=== PATIENT | male | born 1980 | race Caucasian/White ===

== ENCOUNTER 2021-12-03 20:11 | Emergency (ER) | payer BC, MEDICARE, SELFPAY ==
--- NOTE | ~2021-12-03 | XR_ITS ---
EXAMINATION: XR foot LT min 3V DATE: 12/03/2021 23:50 INDICATION: Left second toe injury. TECHNIQUE: 3 views of left foot were obtained. COMPARISON: None. FINDINGS: Bone alignment is normal. No fracture. Joint spaces are well maintained. IMPRESSION: 1. Normal left foot. Reviewed, dictated and finalized at location A. IMPRESSION: 1. Normal left foot.
--- NOTE | ~2021-12-03 | CT_ITS ---
EXAMINATION: CT brain wo con DATE: 12/03/2021 23:21 INDICATION: Head injury. TECHNIQUE: Computed tomography (CT) of the head was performed without intravenous contrast. The mA wa s adjusted according to patient size. Iterative reconstruction technique was employed. The dose-lengt h product was 605.33 mGy-cm. COMPARISON: Head CT 12/21/2009 FINDINGS: There is no intracranial hemorrhage, acute infarction, or abnormal intracranial mass lesion . The ventricles are normal in size. The orbits are normal. The paranasal sinuses are clear. The mast oid air cells are normal. IMPRESSION: 1. Normal brain. Reviewed, dictated and finalized at location A. IMPRESSION: 1. Normal brain.
--- NOTE | ~2021-12-03 | CT_ITS ---
EXAMINATION: CT cervical spine wo con DATE: 12/03/2021 23:21 INDICATION: Neck pain. Fall. TECHNIQUE: Computed tomography (CT) of the cervical spine was performed without intravenous contrast. Automated exposure control and iterative reconstruction technique were employed. The dose-length pro duct was 251.54 mGy-cm. COMPARISON: CT cervical spine 12/21/2009 FINDINGS: There is mild emphysema. C1 ring is ununited posteriorly, a normal variant. There is 11 deg juliette levoscoliosis of cervical spine. Vertebral body heights and intervertebral disc heights are norm al. The following disc levels are specifically discussed: C2-C3 through C4-C5: There is no uncovertebral joint osteoarthritis. There is no facet joint osteoart hritis. There is no neural foraminal stenosis. There is no central canal stenosis. C5-C6: There is no uncovertebral joint osteoarthritis. There is mild right facet joint osteoarthritis . There is no neural foraminal stenosis. There is no central canal stenosis. C6-C7: There is no uncovertebral joint osteoarthritis. There is no facet joint osteoarthritis. There is no neural foraminal stenosis. There is no central canal stenosis. C7-T1: There is no uncovertebral joint osteoarthritis. There is mild bilateral facet joint osteoarthr itis. There is no neural foraminal stenosis. There is no central canal stenosis. IMPRESSION: 1. No fracture. 2. Cervical levoscoliosis. 3. Mild emphysema. Reviewed, dictated and finalized at location A.
--- NOTE | ~2021-12-03 | XR_ITS ---
EXAMINATION: XR shoulder RT min 2V DATE: 12/03/2021 23:50 INDICATION: Right shoulder pain. TECHNIQUE: 4 views of right shoulder were obtained. COMPARISON: None. FINDINGS: Bone alignment is normal. No fracture. Glenohumeral joint is normal. There is mild acromioc lavicular joint osteoarthritis. IMPRESSION: 1. Mild acromioclavicular joint osteoarthritis. Reviewed, dictated and finalized at location A.
[2021-12-03 21:03] VITALS: BP 148/62; PULSE 64; RESP 18; TEMP 36.9; O2SAT 100
--- NOTE | 2021-12-03 23:08 | ED.GENADULT ---
HPI - General Adult General Chief complaint: Fall Stated complaint: Fall, +LOC, wound on foot Time Seen by Provider: 12/03/21 22:55 History of Present Illness HPI narrative: 41-year-old male presented emergency department for evaluation of injury to his left foot and to his right shoulder. Patient states that he chased his dog across the field while barefoot. Patient states he dove into a james and had possible loss of consciousness. Patient does describe a possible head injury and does have some posterior neck pain. Patient states he does have some right shoulder tenderness. Patient does have a laceration to the second toe of the left foot. Related Data Allergies Allergy/AdvReac Type Severity Reaction Status Date / Time naproxen Allergy Mild Verified 06/11/16 03:01 prednisone Allergy Unknown Verified 06/11/16 03:01 STEROIDS AdvReac Unknown STEROID Uncoded 10/13/13 14:03 RAGE Review of Systems Review of Systems: CONSTITUTIONAL: Denies fever, chills, or sweats. EYES: Denies visual changes, redness, or discharge. ENT: Denies rhinorrhea, congestion, sore throat, or otalgia. CARDIOVASCULAR: Denies chest pain, palpitations, or edema. RESPIRATORY: Denies cough or dyspnea. GASTROINTESTINAL: Denies abdominal pain, nausea, vomiting, or diarrhea. GENITOURINARY: Denies dysuria or hematuria. SKIN: See HPI MUSCULOSKELETAL: See HPI NEUROLOGIC: Denies headache, numbness, or weakness. Exam Narrative: APPEARANCE: Well appearing, no pain, no distress, well-nourished. HEAD: normocephalic, atraumatic. EYES: PERRLA/EOMI, conjunctivae clear. NOSE: Normal no drainage EARS:TMS clear with good light reflex. THROAT: Pharynx clear, no exudate. NECK: Supple. No adenopathy, no masses. RESPIRATORY: Airway patent, respirations nonlabored. Clear to auscultation bilaterally, no rales, rhonchi, wheezing. CARDIOVASCULAR: Regular rate and rhythm without murmurs rubs or gallops. ABDOMINAL: Soft, nontender, nondistended, normal bowel sounds MUSCULOSKELETAL: Some neck tenderness to palpation. Pain with movement of the right shoulder. NEURO: Alert. Cranial nerves II through XII intact. Good gait. Good coordination SKIN: Laceration to plantar aspect of second toe of left foot Course Course Emergency Course: Head CT, neck CT, right shoulder and left foot x-ray were negative for acute abnormalities. Patient's laceration on his left second toe was repaired as described in the procedure note. Patient states his tetanus is up-to-date. Vital Signs Vital signs: Vital Signs Temperature 98.4 F 12/03/21 21:03 Pulse Rate 64 12/03/21 21:03 Respiratory Rate 18 12/03/21 21:03 Blood Pressure 148/62 H 12/03/21 21:03 Pulse Oximetry 100 12/03/21 21:03 Oxygen Delivery Room Air 12/03/21 21:03 Temperature 98.4 F 12/03/21 21:03 Pulse Rate 68 12/04/21 01:26 Respiratory Rate 16 12/04/21 01:26 Blood Pressure 136/96 H 12/04/21 01:26 Pulse Oximetry 98 12/04/21 01:26 Oxygen Delivery Room Air 12/03/21 21:03 Procedures Laceration Laceration 1: Time: 01:05 Site: lower extremity (2nd toe) Side (If applicable): left Size (cm): 2 Description: linear Depth: simple, single layer Local Anesthetic: lidocaine 1% Amount of anesthesia used (mL): 2 Pre-repair: wound explored, irrigated and irrigated extensively ====== Skin Level ====== Skin layer closed with: nylon Size (cm): 4-0 Number of sutures: 2 Technique: simple, interrupted ====== Subcutaneous Layer ====== ====== Muscle Layer ====== ====== Tendon Layer ====== Medical Decision Making Vital Signs Vital Signs: Vital Signs Temperature 98.4 F 12/03/21 21:03 Pulse Rate 64 12/03/21 21:03 Respiratory Rate 18 12/03/21 21:03 Blood Pressure 148/62 H 12/03/21 21:03 Pulse Oximetry 100 12/03/21 21:03 Oxygen Delivery Room Air 12/03/21 21:03 Temperature 98.4
[2021-12-04] MEDS: LIDOCAINE HCL 1% PF 30 ML VIAL 10 ML INFILTRATE (00:50)
[2021-12-04 01:26] VITALS: BP 136/96; PULSE 68; RESP 16; O2SAT 98
== END 2021-12-04 01:37 | disposition home or self-care (01) ==
PROVIDERS: Emergency Provider Emergency Medicine; PCP Family Medicine
DX: S49.91XA Unspecified injury of right shoulder and upper arm, initial encounter (principal); S09.90XA Unspecified injury of head, initial encounter; S19.9XXA Unspecified injury of neck, initial encounter; S91.115A Laceration without foreign body of left lesser toe(s) without damage to nail, initial encounter; W18.39XA Other fall on same level, initial encounter; Y93.02 Activity, running
CPT/HCPCS: 12001; 70450; 72125; 73030; 73630; 99284

== ENCOUNTER 2023-08-20 11:56 | Emergency (ER) | payer BC, MEDICARE, SELFPAY ==
--- NOTE | ~2023-08-20 | XR_ITS ---
EXAMINATION: XR hip LT min 3V w AP pelvis DATE: 08/20/2023 13:10 INDICATION: Acute on chronic left hip pain TECHNIQUE: Anteroposterior view of the pelvis and anteroposterior, frog leg and cross-table lateral v iews of the left hip were obtained. COMPARISON: None. FINDINGS: Alignment is normal. No fracture or suspected osteonecrosis. Bilateral hip joint spaces are normal. T here appears be decreased offset with small impingement bumps at the bilateral femoral head neck junc tions which could predispose towards cam-type femoral acetabular impingement. Mild bilateral hip oste oarthritis. Moderate disc height loss at L5-S1. IMPRESSION: 1. Normal left hip joint space with no acute osseous abnormality. 2. Bilateral decreased femoral head/neck offset with associated small impingement. Which can predispo se towards cam-type femoral acetabular impingement. Reviewed, dictated and finalized at location A. IMPRESSION: 1. Normal left hip joint space with no acute osseous abnormality. 2. Bilateral decreased femoral head/neck offset with associated small impingeme nt. Which can predispose towards cam-type femoral acetabular impingement.
[2023-08-20 12:05] VITALS: BP 123/96; PULSE 73; RESP 20; TEMP 36.7; O2SAT 98
--- NOTE | 2023-08-20 12:14 | ED.BACK ---
HPI - Back Pain/Injury General Chief Complaint: Back Pain/Injury Stated Complaint: left-sided back pain Time Seen by Provider: 08/20/23 12:04 History of Present Illness HPI Narrative: Patient is a 42-year-old male with history of Bipolar disorder, degenerative lumbar disease with spinal stimulator placed 7 years ago here with lower back pain. Patient states that 45 minutes ago, just prior to arrival patient was at a gas station, feeling like his normal self. He bent over to pick[employer] a cup for soda and felt sudden onset sharp pain in his left lower back. He notes that the pain is severe, sharp, nonradiating. He did not fall to the ground, denies any trauma. Denies any midline pain. He notes that his pain is typically on the right side and is largely controlled after his spinal stimulator was placed in an unknown hospital 7 years ago. He does have gabapentin prescribed to him for breakthrough pains, he took 2 tablets of gabapentin prior to presentation which has helped minimally. Pain is worse with any movements and does get somewhat relieved when lying flat on his back. He notes that pain is exacerbated by bending forward. He believes his spinal stimulator is only program to help right-sided lower back pain. He denies bowel or bladder incontinence, denies saddle anesthesia. He denies numbness or weakness in his lower extremities, states he has had some difficulty bearing weight on the left leg due to worsening of pain. No urinary symptoms. He felt like his normal self prior to this enticing event. Related Data Allergies Allergy/AdvReac Type Severity Reaction Status Date / Time naproxen Allergy Mild Unknown Verified 08/20/23 11:58 prednisone Allergy Unknown Agitated Verified 08/20/23 11:58 STEROIDS AdvReac Unknown STEROID Uncoded 08/20/23 11:58 RAGE Review of Systems Review of Systems: All systems reviewed & are unremarkable except as noted in HPI and below Exam Narrative: GENERAL: Well-appearing, well-nourished, and in no acute distress. CHEST: Clear to auscultation. No respiratory distress. HEART: Regular rate and rhythm. Normal peripheral pulses. ABDOMEN: Soft, nontender, nondistended. EXTREMITIES: No midline thoracic or lumbar tenderness. Old scar and spinal stimulator visible on exam. Patient has left lateral paralumbar pain and tenderness over the iliac crest. Normal range of motion of bilateral hips. He is able to stand however pain significantly worse with attempting to bend forward and touch his toes. SKIN: Warm, dry, no rash. NEURO: No focal deficits. Alert and oriented x3. Course Course Emergency Course: Chart review performed. Patient here with left sided lower back pain. Triage vitals normal. One prior visit in our system for a fall and neck pain. Patient seen evaluated, nontoxic appearing. He is here with lower back pain after bending over. Low suspicion for spinal fracture given no midline pain present. Will give pain management with Toradol, Flexeril, Brunswick and re-evaluate. Will do left hip x-rays given the fact that he has a history of prior right hip obvious abnormalities requiring surgical repair. Patient agreeable to workup and plan. X-ray reviewed, moderate disc height loss at L5-S1, he has a known history of degenerative disc disease in his lower back. No osseous abnormalities seen in the left hip. He has bilateral decreased from our own head/neck offset with associated small impingement. Patient re-evaluated, visualized ambulating around the room, states that he has had significant improvement with medications here. Will prescribe him Brunswick and Flexeril. 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 He is already starting to do physical therapy exercises while in the room here that he has been taught previously. The results of pertinent diagnostic studies and exam findings were discussed. The mara
[2023-08-20] MEDS: KETOROLAC 30 MG/ML VIAL (*BKC) 15 MG IM (12:46)
[2023-08-20] MEDS: CYCLOBENZAPRINE HCL 10 MG TABLET PO (12:46)
[2023-08-20] MEDS: HYDROcodone/acetaminophen (*CRX) 5-325 MG TABLET 1 TAB PO (12:47)
[2023-08-20 14:19] VITALS: BP 112/80; PULSE 87; RESP 18; O2SAT 97
== END 2023-08-20 14:20 | disposition home or self-care (01) ==
PROVIDERS: Emergency Provider Student in an Organized Health Care Education/Training Program; PCP Family Medicine
DX: S39.012A Strain of muscle, fascia and tendon of lower back, initial encounter (principal); M51.36 Other intervertebral disc degeneration, lumbar region; Z96.82 Presence of neurostimulator; X50.9XXA Other and unspecified overexertion or strenuous movements or postures, initial encounter
CPT/HCPCS: 73502; 96372; 99283; A9270; J1885

== ENCOUNTER 2024-02-03 15:31 | Emergency (ER) | payer MEDICARE, BC, SELFPAY ==
[2024-02-03 15:33] VITALS: BP 167/101; PULSE 78; RESP 18; TEMP 36.4; O2SAT 100
--- NOTE | 2024-02-03 18:12 | PC.NURSE ---
called at 1809, no answer
== END 2024-02-03 18:10 | disposition left against medical advice (07) ==
PROVIDERS: PCP Family Medicine
DX: R03.0 Elevated blood-pressure reading, without diagnosis of hypertension (principal)
CPT/HCPCS: 99199

== ENCOUNTER 2024-02-23 08:20 | Outpatient (CLI) | payer BC, MEDICARE, SELFPAY ==
--- NOTE | ~2024-02-23 | CT_ITS ---
CT lumbar spine wo con Ordering provider: Tyler Albarado, CAR PUSHER History: 43 years Male with . Lumbar radicular pain . Comparison: None. Technique: CT lumbar spine without contrast. Automated exposure control and iterative reconstruction technique were employed. The dose-length product was 212.09 mGy-cm. FINDINGS: VERTEBRAE: Normal height and alignment. No subluxation or visible acute fracture. DISC SPACES: Well maintained. Evaluation of the neural foramina and spinal canal are limited without intrathecal contrast. T12-L1: No stenosis. L1-L2: No stenosis. L2-L3: No stenosis. L3-L4: No stenosis. L4-L5: No stenosis. L5-S1: No stenosis. Diffuse disc bulge with right posterolateral protrusion with possible nerve root compression in the right lateral recess. Clinical correlation advised. PARASPINOUS SOFT TISSUES: Normal aorta. Spinal stimulator is seen entering at the level of T12-L1. Bilateral kidney stones. IMPRESSION: No acute osseous abnormality. Diffuse disc bulge at the level of L5-S1. Bilateral kidney stones. Reviewed, dictated and finalized at location A. MOWER MECHANIC
--- NOTE | ~2024-02-23 | CT_ITS ---
EXAMINATION: CT thoracic spine wo con DATE: 02/23/2024 08:48 INDICATION: Lumbar radicular pain. TECHNIQUE: Computed tomography (CT) of the thoracic spine was performed without intravenous contrast. Automated exposure control and iterative reconstruction technique were employed. The dose-length pro duct was 268.41 mGy-cm. COMPARISON: None FINDINGS: There are 3 mm and 2 mm stones in right kidney. There are 3 stones in left kidney measuring up to 2 mm. There is mild emphysema. There is 5 degrees dextrocurvature of thoracic spine. Vertebral body heights are normal. There is mildly decreased disc height from T3-T4 through T10-T11. There is multilevel mild facet joint osteoarthritis. There is mild left neural foraminal stenosis at T2-T3. No central canal stenosis. There are epidural electrodes with tips at T7 and T8. IMPRESSION: 1. Mild thoracic spondylosis. Reviewed, dictated and finalized at location A. CARRIER
== END 2024-02-23 08:21 | disposition home or self-care (01) ==
LOC: MICIMG 08:22
PROVIDERS: PCP Family Medicine; Visit Provider Nurse Practitioner Family
DX: M47.814 Spondylosis without myelopathy or radiculopathy, thoracic region (principal); Z96.82 Presence of neurostimulator; M54.10 Radiculopathy, site unspecified
CPT/HCPCS: 72128; 72131

== ENCOUNTER 2024-03-29 13:12 | Outpatient (CLI) | payer BC, MEDICARE, SELFPAY ==
--- NOTE | ~2024-03-29 | CT_ITS ---
EXAMINATION: CT cervical spine wo con DATE: 03/29/2024 13:27 INDICATION: Cervical radicular pain. TECHNIQUE: Computed tomography (CT) of the cervical spine was performed without intravenous contrast. Automated exposure control and iterative reconstruction technique were employed. The dose-length pro duct was 166.44 mGy-cm. COMPARISON: CT cervical spine 12/03/2021 FINDINGS: There is mild emphysema. There is mild scarring at the lung apices. C1 ring is ununited pos teriorly, a normal variant. There is 11 degrees levoscoliosis of cervical spine. Vertebral body heigh ts are normal. Intervertebral disc heights are normal. The following disc levels are specifically dis cussed: C2-C3: There is no uncovertebral joint osteoarthritis. There is no facet joint osteoarthritis. There is no neural foraminal stenosis. There is no central canal stenosis. C3-C4: There is no uncovertebral joint osteoarthritis. There is no facet joint osteoarthritis. There is no neural foraminal stenosis. There is no central canal stenosis. C4-C5: There is no uncovertebral joint osteoarthritis. There is no facet joint osteoarthritis. There is no neural foraminal stenosis. There is no central canal stenosis. C5-C6: There is no uncovertebral joint osteoarthritis. There is no facet joint osteoarthritis. There is no neural foraminal stenosis. There is mild central canal stenosis. C6-C7: There is no uncovertebral joint osteoarthritis. There is no facet joint osteoarthritis. There is no neural foraminal stenosis. There is no central canal stenosis. C7-T1: There is no uncovertebral joint osteoarthritis. There is mild bilateral facet joint osteoarthr itis. There is no neural foraminal stenosis. There is no central canal stenosis. IMPRESSION: 1. Mild cervical spondylosis. 2. Cervicothoracic levoscoliosis. 3. Mild emphysema. Reviewed, dictated and finalized at location B. BLE MANAGER
== END 2024-03-29 13:13 | disposition home or self-care (01) ==
LOC: MICIMG 13:13
PROVIDERS: PCP Family Medicine; Visit Provider Nurse Practitioner Family
DX: M47.812 Spondylosis without myelopathy or radiculopathy, cervical region (principal); M47.813 Spondylosis without myelopathy or radiculopathy, cervicothoracic region; J43.9 Emphysema, unspecified
CPT/HCPCS: 72125

== ENCOUNTER 2024-04-08 11:04 | Outpatient (CLI) | payer BC, MEDICARE, SELFPAY ==
--- NOTE | 2024-04-08 | ECG_ITS ---
Test Date: 2024-04-08 11:40:46 Measurements Intervals [place] Rate: 52 P: 59 VT: 146 QRS: 82 QRSD: 92 T: 75 QT: 422 QTc: 395 Interpretive Statements SINUS BRADYCARDIA WITH SINUS ARRHYTHMIA No previous ECG available for comparison Electronically Signed On 04-08-2024 11:50:43 HOSPITAL EDUCATOR by Dashawn Marshall M.D.
--- OUTSIDE RECORDS SUMMARY | 2024-04-08 12:13 | XMS_ITS | Clinical Summary ---
Author Organization [facility] Address [address] [place] [address] Care Team Providers Care Weir Fisherman Name Role Phone Ghanshyam Perdue MD Primary Care Provider Source Comments [facility],non-owned Affiliates and Associated Physician Practices is amultiple site organization consisting of ambulatory clinics and hospital sitesin [place], [place], [place] and [place]. This disclosure is being madepursuant to the Care Everywhere program and may not contain all information available regarding this patient. Last updated 17.[facility] Allergies Active Allergy Reactions Criticality Noted Date Comments Duloxetine Other 06/11/2016 Naproxen GI Discomfort,Other High 11/17/2014 GI bleed, GI bleed GI bleed, GI bleed Medications * Be aware that medications may not be up to date on this document. Alwaysverify current medications with the patient. Medication Sig Dispensed Refills Start Date End Date Status ALPRAZolam (XANAX) 0.5 MG tablet TK ONE T PO BID 06/03/2016 Active MAGNESIUM-OXIDE 400 (241.3 MG) MG tablet TK 1 T PO QD 2 02/14/2017 Ac tive cyclobenzaprine (FLEXERIL) 10 MG tablet TK 1 T PO TID PRN 0 02/13/2017 Active Magnesium ([employer] TRIPLE MAGNESIUM COMPLEX) 400 MG Take 400 mg by mouth DAILY. 30 capsule 2 02/13/2017 Active amitriptyline (ELAVIL) 10 MG tablet TK 1 T PO HS 0 11/19/2017 A ctive OLANZapine (ZYPREXA) 10 MG tablet Take 10 mg by mouth once daily Active oxyCODONE-acetaminoph en (PERCOCET) 7.5-325 MG tabletIndications:Inf lammation of right sacroiliac joint (HCC),Lumbar degenerative disc disease,Spondylosis of cervical region without myelopathy or radiculopathy Take 1 tablet by mouth every 6 hours as needed for Pain Earliest Fill Date: 10/15/18 120 tablet 10/15/2018 Active baclofen (LIORESAL) 10 MG tablet TAKE 1/2 TO 2 TABLETS BY MOUTH EVERY NIGHT AT BEDTIME 180 tablet 01/18/2019 Active Active Problems Problem Noted Date Diagnosed Date Inflammation of right sacroiliac joint Lumbar degenerative disc disease Sacroiliitis, not elsewhere classified Family History Medical History Relation Name Comments Migraine Mother Relation Name Status Comments Mother Social History Tobacco Use Types Packs/Day Years Used Date Smoking Tobacco: Former Cigarettes Q uit: 03/27/2018 Smokeless Tobacco: Current Tobacco Cessation:Ready to Q uit: No; Counseling Given: Yes Comments:vape Alcohol Use Standard Drinks/Week Comments Yes 0 (1 standard drink = 0.6 oz pur e alcohol) occ Sex and Gender Information Value Date Recorded Sex Assigned at Not on file Gender Identity Not on file Sexual Orientation Not on file Last Filed Vital Signs Vital Sign Reading Time Taken Comments Blood Pressure 132/95 12/09/2018 1:51 PM CDT Pulse 88 12/09/2018 1:51 PM CDT Temperature 36.6 ??C (97.8 ??F) 12/09/2018 1:51 PM CD T Respiratory Rate 16 12/09/2018 1:51 PM CDT Oxygen Saturation 98% 12/09/2018 1:51 PM CDT Inhaled Oxygen Concentration - - Weight 62.4 kg (137 lb 9.6 oz) 11/17/2018 1:36 P M CDT Height 182.9 cm (6') 11/17/2018 1:36 PM CDT Body Mass Index 18.66 11/17/2018 1:36 PM CDT Plan of Treatment Health Maintenance Due Date Last Done Comments COLOGUARD (AGES 45-75) - COL ON CA SCREENING 1978 COLON MONITORING 1978 COLONOSCOPY - COLON CA SCREENING 1978 CT COLONOGRAPHY - COLON CA SCREENING 1978 Colorectal Cancer Screening 1978 FIT - COLON CA SCREENING 1978 FLEX SIG - COLON CA SCREENING 1978 LIPID TESTING 1978 MEDICARE AWV ? 12 MONTHS 1978 HIV SCREENING 1993 HEPATITIS C SCREENING 10/12/1996 DTAP/TDAP/TD VACCINES (1 - Tdap) 1997 HEPATITIS B VACCINE (1 of 3 - 19+ 3-dose series) 1997 COVID-19 VACCINE (1 - 2023-2 5 season) 2023 INFLUENZA VACCINE (#1) 2023 DEPRESSION SCREENING 03/10/2024 ZOSTER VACCINE (1 of 2) 2028 HIB VACCINE Aged Out No longer eligi ble based on patient's age to complete this topic HPV VACCINE Aged Out No longer eligi ble based on patient's age to complete this topic MENINGOCOCCAL (Group B) VACCINE Aged Out No longer eligible based on patient's age to complete this topic MENINGOCOCCAL VACCINE Aged Out No kristina christa eligible based on patient's age to complete this topic PNEUMOCOCCAL VACCINE Aged Out No long er eligible based on patient's age to complete this topic Medical Devices Implanted Type Area Honing Machine Operator Device Identifier Shelf Expiration Date Model / Serial / Lot [place] Leblanc-Lck Implanted:Qty: 2 on 05/27/2018 by David Glover MD at [facility] N/A: Back [employer] 03/24/2020 1192 / / [id number] Description:LEBLANC-LOCK Kit Nrstm 60cm Octrode Perc 8 Eltrd Ld - [id number] Implanted:Qty: 1 on 05/27/2018 by David Glover MD at [facility] N/A: Back [employer] 11/24/2019 [id number] / [id number] / Kit Nrstm 60cm Octrode Perc 8 Eltrd Ld - [id number] Implanted:Qty: 1 on 05/27/2018 by David Glover MD at [facility] N/A: Back [employer] 11/24/2019 [id number] / [id number] / [employer] Elite 5 W/Ptnt Cntrl Implanted:Qty: 1 on 05/27/2018 by David Glover MD at [facility] N/A: Back [employer] 12/26/2019 [id number] / [id number] / Care Teams Weir Fisherman Relationship Specialty Start Date End Date Ghanshyam Perdue MD PCP - General Family Medicine 04/07/17
--- OUTSIDE RECORDS SUMMARY | 2024-04-08 12:13 | XMS_ITS | Clinical Summary ---
Author Organization [facility] Address [address], [facility] [address] [place] [address] Phone Care Team Providers Care Manager Of Pmo Name Role Phone Ghanshyam Perdue MD Primary Care Provider [phone] Allergies No known active allergies Medications gabapentin (NEURONTIN) 100 MG Capsule Take 100 mg by mouth 3 times daily. 11/18/2022 Active QUEtiapine (SEROquel) 25 MG Tablet TAKE 1 TABLET BY MOUTH EVERY DAY AT BEDTIME 11/18/2022 Active hydrOXYzine (ATARAX) 25 MG Tablet TAKE 1 TABLET BY MOUTH THREE TIMES DAILY NEEDED 11/12/2022 Active ALPRAZolam (XANAX) 0.5 MG Tablet Take 0.5 mg by mouth. 04/26/2013 Active baclofen (LIORESAL) 10 MG Tablet TAKE 1/2 TO 2 TABLETS BY MOUTH EVERY NIGHT AT BEDTIME 01/18/2019 Active Active Problems No known active problems Family History Relation Name Status Comments Brother Father Alive Mother Alive Sister Social History Tobacco Use Types Packs/Day Years Used Date Smoking Tobacco: Every Day Cigarettes Smokeless Tobacco: Never Tobacco Cessation:Ready to Q uit: Not Asked; Counseling Given: Not Answered Alcohol Use Standard Drinks/Week Comments Yes 4 (1 standard drink = 0.6 oz pur e alcohol) Sex and Gender Information Value Date Recorded Sex Assigned at Not on file Legal Sex Male 2:55 PM CDT Gender Identity Not on file Sexual Orientation Not on file Last Filed Vital Signs Vital Sign Reading Time Taken Comments Blood Pressure 136/68 12/12/2022 11:05 AM CDT Pulse 78 12/12/2022 11:05 AM CDT Temperature 36.8 ??C (98.3 ??F) 12/12/2022 1 1:05 AM CDT Respiratory Rate 18 12/12/2022 11:0 5 AM CDT Oxygen Saturation 98% 12/12/2022 11: 05 AM CDT Inhaled Oxygen Concentration - - Weight 59.7 kg (131 lb 9.6 oz) 12/12/2022 11:05 AM CDT BMI incorrect due to technical error Height 185.4 cm (6' 1 ) 12/12/2022 11:0 5 AM CDT BMI incorrect due to technical error Body Mass Index 17.36 12/12/2022 11:05 AM CDT Plan of Treatment Health Maintenance Due Date Last Done Comments Hepatitis C Virus (HCV) Screening 1980 TdaP Immunization 1980 Hepatitis B Immunization (1 of 3 - 19+ 3-dose series) 1997 Pneumococcal Immunization Combined (1 of 2 - PCV) 1997 Colonoscopy 10/18/2023 Colorectal Cancer Screening 10/18/2023 Influenza Immunization (#1) 2023 12/17/2011 SARS-COV-2 Immunization ( season) 2023 05/16/2021, 04/03/2021 Respiratory Syncytial Virus (RSV) Immunization (Adult) (1 - 1-dose 75+ series) 2053 Meningococcal Immunization (ACWY) Aged Out No longer eligible b ased on patient's age to complete this topic Rotavirus Immunization Aged Out No lo nger eligible based on patient's age to complete this topic Insurance [facility] MEDICARE Care Teams Manager Of Pmo Relationship Specialty [place] [address] [place] [address] PCP - General Family Medicine 11/22/22
--- OUTSIDE RECORDS SUMMARY | 2024-04-08 12:13 | XMS_ITS | Patient Health Summary ---
Author Organization [facility] [employer] Address [address] [place] [address] Care Team Providers Care Breastfeeding Educator Name Role Phone Ghanshyam Perdue MD Primary Care Provider [phone] Note from [facility],non-owned Affiliates and Associated Physician Practices is amultiple site organization consisting of ambulatory clinics and hospital sitesin [place], [place], [place] and [place]. This disclosure is being madepursuant to the Care Everywhere program and may not contain all information available regarding this patient. Last updated 17.[facility] [employer] Allergies * Duloxetine(Other) * Naproxen(GI Discomfort,Other) -High Criticality Medications * Be aware that medications may not be up to date on this document. Alwaysverify current medications with the patient. * ALPRAZolam (XANAX) 0.5 MG tablet(Started 06/03/2016) TK ONE T PO BID * MAGNESIUM-OXIDE 400 (241.3 MG) MG tablet(Started 02/14/2017) TK 1 T PO QD 2 refills left * cyclobenzaprine (FLEXERIL) 10 MG tablet(Started 02/13/2017) TK 1 T PO TID PRN * Magnesium ([employer]S TRIPLE MAGNESIUM COMPLEX) 400 MG(Started 02/13/2017) Take 400 mg by mouth DAILY. 2 refills left * amitriptyline (ELAVIL) 10 MG tablet(Started 11/19/2017) TK 1 T PO HS * OLANZapine (ZYPREXA) 10 MG tablet Take 10 mg by mouth once daily * oxyCODONE-acetaminophen (PERCOCET) 7.5-325 MG tablet(Started 10/15/2018) Take 1 tablet by mouth every 6 hours as needed for Pain Earliest Fill Date: 10/15/18 * baclofen (LIORESAL) 10 MG tablet(Started 01/18/2019) TAKE 1/2 TO 2 TABLETS BY MOUTH EVERY NIGHT AT BEDTIME Active Problems Problem Noted Date Diagnosed Date Inflammation of right sacroiliac joint Lumbar degenerative disc disease Sacroiliitis, not elsewhere classified Social History Tobacco Use Types Packs/Day Years [...] Mass Index 18.66 11/17/2018 1:36 PM CDT Medical Devices Implanted Type Area Employee Benefits Director Device Identifier Shelf Expiration Date Model / Serial / Lot Acton Ld Leblanc-Lck Implanted:Qty: 2 on 05/27/2018 by David Glover MD at [facility] N/A: Back [employer] 03/24/2020 1192 / / [id number] Description:LEBLANC-LOCK Kit Nrstm 60cm Octrode Perc 8 Eltr[address] Ld - [id number] Implanted:Qty: 1 on 05/27/2018 by David Glover MD at [facility] N/A: Back [employer] 11/24/2019 3186 / [id number] / Kit Nrstm 60cm Octrode Perc 8 Eltr[address] Ld - [id number] Implanted:Qty: 1 on 05/27/2018 by David Glover MD at [facility] N/A: Back [employer] 11/24/2019 3186 / [id number] / Proclaim Elite 5 W/Ptnt Cntrl Implanted:Qty: 1 on 05/27/2018 by David Glover MD at [facility] N/A: Back [employer] 12/26/2019 3660 / [id number] / Procedures * PAIN MANAGEMENT PROCEDURE TIME(Performed 12/09/2018) Performed for Inflammation of right sacroiliac joint (HCC) * PAIN MANAGEMENT PROCEDURE TIME(Performed 09/15/2018) Performed for Inflammation of right sacroiliac joint (HCC) * TOXASSURE SELECT(Performed 09/07/2018) Performed for Controlled substance agreement signed * PAIN MANAGEMENT PROCEDURE TIME(Performed 08/13/2018) Performed for Inflammation of right sacroiliac joint (HCC) * XR CERVICAL SPINE 6VW OR MORE(Performed 07/17/2018) Performed for Spondylosis of cervical region without myelopathy or radiculopathy * CARDIAC RHYTHM STRIP ORDER(Performed 05/29/2018) * FL DUY SURGERY(Performed 05/27/2018) Performed for Pain * INSERTION/REPLACEMENT SPINAL CORD STIMULATOR(Performed 05/27/2018) Performed for Diagnosis unknown * XR THORACIC SPINE 2VW(Performed 01/19/2018) Performed for Neuralgia * PAIN MANAGEMENT PROCEDURE TIME(Performed 01/13/2018) Performed for Low back pain with sciatica, sciatica laterality unspecified, unspecified back pain laterality, unspecified chronicity * PAIN MANAGEMENT PROCEDURE TIME(Performed 10/22/2017) Performed for Inflammation of right sacroiliac joint (HCC) * PATHOLOGY/GENETICS HISTORICAL-ONBASE(Performed 11/22/2016) * LAB MISC TEST(Performed 10/29/2016) * ECHO COMPLETE(Performed 08/07/2016) * IMAGING/RADIOLOGY/XRAY RESULTS ORDER(Performed 06/19/2016) * IMAGING/RADIOLOGY/XRAY RESULTS ORDER(Performed 06/19/2016) Results * PAIN MANAGEMENT PROCEDURE TIME (12/09/2018 2:23 PM CDT) Only the most recent of5 resultswithin the time period is included. Anatomical Region Laterality Modality Radio Fluoroscop y Narrative 12/09/2018 11:59 PM CDT David Glover MD ? 12/22/2018 ??7:13 AM Right sacroiliac joint steroid injection under fluoroscopy and local Right Sacroiliac Steroid Injection Dx: ??M46.1 - Sacroiliitis Consent: The patient was identified in the holding area and the operative permit was explained and signed. I have discussed with the patient the risks, benefits, side effects and complications of a fluoroscopically guided sacroiliac steroid injection with catheter. I have answered the patient's questions regarding the procedure and have given the patient the opportunity to refuse the procedure. I also have discussed alternative methods of treatment. The patient stated understanding of the procedure and wished to proceed with the fluoroscopically guided sacroiliac steroid injection. Monitoring: The patient was taken to the fluoroscopic suite and placed on a C-arm table in the prone position. Noninvasive blood pressure, pulse oximetry, and an EKG tracing were used to monitor the patient continuously throughout the procedure. A nurse was in attendance for the duration of the procedure to carefully monitor the patient. Please refer to the nursing record for vital sign documentation and for any doses of sedatives and medications. I was present and gave the order for any medications given to the patient. Preparation: Chloroprep preparation was performed twice, then sterile drapes were applied to the sacrococcygeal region. Procedure: Using fluoroscopic guidance, the sacroiliac joint(s) mentioned above was visualized in the AP oblique direction. ??A 27 gauge 1.5 inch was then used to inject 1.5 cc of Lidocaine 1% for subcutaneous anesthesia. A 25 gauge 4 inch needle was placed in the inferior aspect of the sacroiliac joint. ??0.4 ml of Omnipaque (240mg/cc) was injected and intraarticular spread was confirmed under direct fluoroscopy. ??There was no evidence of intravascular or epidural spread. ??A preservative free mixture of 2 ml 0.25% Bupivacaine and dexamethasone ??10 mg is injected fredi joint and 2 ml above joint. ?? The needle was removed intact. The patient tolerated the procedure well and there were no complications. Recovery: Postprocedure instructions were given to the patient and a follow up appointment was confirmed. The patient was also discharged with information on how to reach the clinic or communications program manager physician at anytime for questions or complaints. David Glover MD DIAGNOSTIC IMAGING O RDERABLES * TOXASSURE SELECT URINE (09/07/2018 1:36 PM CDT) Summary FINAL [facility] ACCOUNT BILL Comment: TOXASSURE SELECT 13 (MW) Test ? Result ? Flag ? Units Drug Present ??Carboxy-THC ?142 ? ng/mg creat ?? Carboxy-THC is a metabolite of tetrahydrocannabinol ??(THC). ?? Source of THC is most commonly illicit, but THC is also present ?? in a scheduled prescription medication. ??Oxycodone ?2261 ?ng/mg creat ??Oxymorphone ?279 ? ng/mg creat ??Noroxycodone ? 3877 ?ng/mg creat ??Noroxymorphone ? 117 ? ng/mg creat ?? Sources of oxycodone are scheduled prescription medications. ?? Oxymorphone, noroxycodone, and noroxymorphone are expected ?? metabolites of oxycodone. Oxymorphone is also available as a ?? scheduled prescription medication. Test ?Result ?Flag ?? Units ?Ref Range ??Creatinine ?145 ?mg/dL ?>=20 Declared Medications: Medication list was not provided. For clinical consultation, please call . URINE SPECIMEN OBTAINED BY CLEAN CATCH PROCEDURE / Unknown 09/07/2018 1:36 PM CDT 09/07/2018 Narrative Resulting Agency Comment Lab Testing performed at: [facility] [address] [place] [address] D ??[facility] [id number] Racquel Khan AD SETTER-REGISTERED NURSING PROFESSOR LAB - URINE CH EMISTRY ORDERABLES [facility] ACCOUNT BILL [id number] [place] [address] * XR CERVICAL SPINE 6VW OR MORE (07/17/2018 11:19 AM CDT) Anatomical Region Laterality Modality Spine Radiographic Oriana ging 07/17/2018 12:4 2 PM CDT Impressions 07/17/2018 12:44 PM CDT Loss of the cervical lordosis with normal disc heights. Reading Radiologist: Channing Greenwood MD on 07/17/2018 at 12:44 PM Narrative 07/17/2018 12:44 PM CDT Examination: Cervical spine complete with bilateral oblique and flexion extension History: Cervical radiculopathy Findings: AP, lateral, lateral flexion and extension, open-mouth, bilateral oblique views of the cervical spine were performed without prior comparison. There is mild loss of the cervical lordosis. There is no prevertebral soft tissue swelling. Cervical spine disc spaces appear normal. There is no abnormal listhesis with flexion or extension. Osseous neural foramina appear patent on the oblique views. Alignment of C1 on C2 appears normal. Procedure Note Channing Greenwood MD - 07/17/2018 Examination: Cervical spine complete with bilateral oblique and flexion extension History: Cervical radiculopathy Findings: AP, lateral, lateral flexion and extension, open-mouth, bilateral oblique views of the cervical spine were performed without prior comparison. There is mild loss of the cervical lordosis. There is no prevertebral soft tissue swelling. Cervical spine disc spaces appear normal. There is no abnormal listhesis with flexion or extension. Osseous neural foramina appear patent on the oblique views. Alignment of C1 on C2 appears normal. IMPRESSION Loss of the cervical lordosis with normal disc heights. Reading Radiologist: Channing Greenwood MD on 07/17/2018 at 12:44 PM David Glover MD DIAGNOSTIC IMAGING O RDERABLES * CARDIAC RHYTHM STRIP ORDER (05/29/2018 9:09 PM CDT) Narrative 05/29/2018 9:09 PM CDT Ordered by an unspecified provider. Scanned Document CARDIAC SERVICES ORD ERABLES * FL DUY SURGERY (05/27/2018 8:35 AM CDT) David Glover MD FLUOROSCOPY ORDERABL ES Performing Organization Address City/State/[facility] Co de Phone Number [facility] [address] [place] [address] * XR THORACIC SPINE 2VW (01/19/2018 11:46 AM SPECIAL EDUCATION SECRETARY) Anatomical Region Laterality Modality Spine Radiographic Oriana ging 01/19/2018 11:5 0 AM SPECIAL EDUCATION SECRETARY Impressions 01/19/2018 12:11 PM SPECIAL EDUCATION SECRETARY Findings as noted. Edited by Nesha Savage on 01/19/2018 11:54 AM Reading Radiologist: Jorge Castillo MD on 01/19/2018 at 12:11 PM Narrative 01/19/2018 12:11 PM SPECIAL EDUCATION SECRETARY THORACIC SPINE TWO VIEWS HISTORY: Neuralgia. AP and lateral views of the thoracic spine show a neural stimulation device from approximately T8 through T10. Vertebral heights and interspace heights are in the normal range. Minimal spurring is present. Procedure Note Jorge Castillo MD - 01/19/2018 THORACIC SPINE TWO VIEWS HISTORY: Neuralgia. AP and lateral views of the thoracic spine show a neural stimulation device from approximately T8 through T10. Vertebral heights and interspace heights are in the normal range. Minimal spurring is present. IMPRESSION Findings as noted. Edited by Nesha Savage on 01/19/2018 11:54 AM Reading Radiologist: Jorge Castillo MD on 01/19/2018 at 12:11 PM David Glover MD DIAGNOSTIC IMAGING O RDERABLES * PATHOLOGY/GENETICS HISTORICAL-ONBASE (11/22/2016) 11/22/2016 Historical Provider LAB - CHEMISTRY O RDERABLES Performing Organization Address City/[facility]/ZIP Co de Phone Number [place] [id number] [place] [address], [facility] * LAB MISC TEST (10/29/2016 5:00 PM CDT) Reference Lab Results SEE SCANNED REPORT [facility] REF LAB NON INTERF Other (qualifier value) 10/29/2016 5:00 PM CDT 10/29/2016 5:21 PM CDT Narrative [facility] REF LAB NON INTERF - 11/26/2016 9:27 AM CDT Test Name:->myotonic Dystrophy 1 Reference Lab Info:->Gene Dx Ann Becerril MD LAB SEND OUT [facility] REF LAB NON INTERF * ECHO W DOPPLER AND COLOR FLOW (08/07/2016 12:00 AM CDT) Anatomical Region Laterality Modality Other 08/07/2016 Ann Becerril MD ECHOCARDIOGRAPHY RAD IANT * IMAGING RADIOLOGY XRAY RESULTS ORDER (06/19/2016) Only the most recent of2 resultswithin the time period is included. Anatomical Region Laterality Modality Other Historical Provider IMAGING Care Teams Breastfeeding Educator Relationship Specialty Start Date End Date Ghanshyam Perdue MD PCP - General Family Medicine 04/07/17
--- OUTSIDE RECORDS SUMMARY | 2024-04-08 12:13 | XMS_ITS | Referral Summary ---
Author Organization [facility] Address [address] [place] [address] Care Team Providers Care Doctor Naturopathic Name Role Phone Ghanshyam Perdue MD Primary Care Provider Source Comments [facility],non-owned Affiliates and Associated Physician Practices is amultiple site organization consisting of ambulatory clinics and hospital sitesin [place], [place], [place] and [place]. This disclosure is being madepursuant to the Care Everywhere program and may not contain all information available regarding this patient. Last updated 17.[facility] [employer] Allergies Active Allergy Reactions Criticality Noted Date [...] 11/17/2018 1:36 PM CDT Plan of Treatment Not on file Medical Devices Implanted Type Area Straw Boss Device Identifier Shelf Expiration Date Model / Serial / Lot Rac[place] Ld Leblanc-Lck Implanted:Qty: 2 on 05/27/2018 by David Glover MD at [facility] N/A: Back [employer] 03/24/2020 1192 / / [id number] Description:LEBLANC-LOCK Kit Nrstm 60cm Octrode Perc 8 [address] Ld - [id number] Implanted:Qty: 1 on 05/27/2018 by David Glover MD at [facility] N/A: Back [employer] 11/24/2019 3186 / [id number] / Kit Nrstm 60cm Octrode Perc 8 [address]d - [id number] Implanted:Qty: 1 on 05/27/2018 by David Glover MD at [facility] N/A: Back [employer] 11/24/2019 3186 / [id number] / Proclaim Elite 5 W/Ptnt Cntrl Implanted:Qty: 1 on 05/27/2018 by David Glover MD at [facility] N/A: Back [employer] 12/26/2019 3660 / [id number] / Care Teams Doctor Naturopathic Relationship Specialty Start Date End Date Ghanshyam Perdue MD PCP - General Family Medicine 04/07/17
--- OUTSIDE RECORDS SUMMARY | 2024-04-08 12:14 | XMS_ITS ---
Author Organization [facility] [employer] [facility] Address [address] [facility] [address] [place] [address] Care Team Providers Care Practical Nurse Clinical Coordinator Name Role Phone Iron COYNE, Ghanshyam Primary Care Provider Xiang Duong Unavailable [phone] REASON FOR VISIT Therapy Social History Sex Assigned At : Social History Observation Description Sex Assigned At Male Encounters Encounter Location Date Provider Diagnosis [facility] [address] [facility] [address] [place] [address] 03/09/2024 Xiang Can Plan Of Treatment Next Appt Details Provider Name:Xiang tate, 05/04/2024 01:15:00 PM, [address], [facility] [address], [place], [address], Progress Notes * CHRISTIANO AYALA EDOB: [birth year] (43 yo M)Acc No.[id number]:03/09/2024 Patient:?CHRISTIANO AYALA :1980???Age:43 Y???Sex:Male Address:[facility] [address] [place], [address] * true * Date:? Generated for Printi ng/Faxing/eTransmitting on:?04/08/2024 12:14 PM [employer]
--- OUTSIDE RECORDS SUMMARY | 2024-04-08 12:14 | XMS_ITS | Clinical Summary ---
Author Organization [facility] Address [address] [place] [address]. [place] [address] [place] [address] Care Team Providers Care Food Concession Manager Name Role Phone Ghanshyam Perdue MD Primary Care Provider [phone] Allergies Active Allergy Reactions Criticality Noted Date Comments Duloxetine Other (see comment) Medium 06/11/2016 Suicidal tendencies Meloxicam GI Bleed 02/03/2024 Naproxen GI Upset Low 11/17/2014 GI bleed Medications gabapentin (NEURONTIN) 100 MG capsuleIndicat ions:Coccygeal pain take 1 capsule by mouth three times daily 270 capsule 4 Active QUEtiapine (SEROQUEL) 25 MG tablet Take 1 tablet (25 mg total) by mouth nightly at bedtime. Active Meloxicam 10 MG CapIndications :Other chronic pain Take 10 mg by mouth daily. With food 30 capsule Active Additional Information Patient not taking.Reported on 02/03/2024 meloxicam (MOBIC) 15 MG tabletIndicati ons:Myotonic dystrophy (CMS/HCC HHS/HCC) Take 1 tablet (15 mg total) by mouth daily. 60 tablet 4 Active Additional Information Patient not taking.Reported on 02/03/2024 HYDROcodone-ac etaminophen (NORCO) 5-325 MG tabletIndicati ons:Acute Pain < 7 Day Supply Take 1 tablet by mouth every 6 (six) hours as needed. Indications: Acute Pain < 7 Day Supply 28 tablet 5 Active HYDROcodone-ac etaminophen (NORCO) 5-325 MG tabletIndicati ons:Acute Pain < 7 Day Supply Take 1 tablet by mouth every 6 (six) hours as needed. Indications: Acute Pain < 7 Day Supply 28 tablet 4 03/12/19 25 Discontin ued(Reord er) Active Problems Problem Noted Date Diagnosed Date Sacroiliitis, not elsewhere classified 3 Pain of right scapula 11/06/2020 Hypertension 05/01/2015 Depression 04/26/2014 Tremor 11/17/2012 Sciatica 11/02/2012 Migraine headache 10/26/2012 Anxiety 10/07/2012 Psychosis ([facility]) 10/07/2012 Degeneration of intervertebral disc 08/13/2012 Resolved Problems Problem Noted Date Diagnosed Date Resolved Date Encounter for preventive health examination 12/17/2011 11/19/2019 Encounters Date Type Department Care Team Description 03/29/2024 Scan [facility] Scanned, Doc [facility] (SCAN) 02/23/2024 Scan [facility] Scanned, Doc Med Group CT (SCAN) 02/18/2024 Scan [facility] Scanned, Doc Med Group 02/03/2024 5:31 PM CULLET CRUSHER AND WASHER - 02/03/2024 8:54 PM [facility] Emergency [facility] Emergency Room [address] [place] [id number] Alize Michel MD Chest Pain; Hypertension Discharge Disposition: Home or Self Care (Routine Discharge) 02/03/2024 10:00 AM CULLET CRUSHER AND WASHER Office Visit [facility] [address] [phone] Ghanshyam Perdue MD Vasectomy (Pt states he would like to discuss getting vasectomy ) 02/03/2024 Telephone [facility] [address] [address] Ghanshyam Perdue MD Blood Pressure 02/03/2024 Travel 01/12/2024 3:20 PM [facility] [employer] [employer] W[employer]ER Office Visit [facility] [address] [phone] Ghanshyam Perdue MD Follow Up; Musculoskeletal Pain 01/12/2024 Travel from Last 3 Months Immunizations Name Administration Dates Next Due Influenza (Generic) 12/17/2011 PFIZER COVID-19 (ORIGINAL FO RMULATION, PURPLE CAP) mRNA, LNP-S, PF, 30 MCG/0.3 ML DOSE 05/16/2021,04/03/2021 Family History Medical History Relation Comments Hypertension Father mild tonic dystrophy Father No Known Problems Mother Relation Status Comments Father Alive Mother Alive Social History Tobacco Use Types Packs/Day Years Used Date Smoking Tobacco: Former Cigarettes 0.5 33.1 S tarted: 1991 Passive Smoke Exposure: Current Smokeless Tobacco: Never Tobacco Cessation:Counseling Given: No Alcohol Use Standard Drinks/Week Comments Not Currently 0 (1 standard drink = 0.6 oz pur e alcohol) AUDIT-C Answer Date Recorded Frequency of Alcohol Consumption Monthly or less 06/05/2018 Average Number of Drinks Not on file 019 Frequency of Binge Drinking Not on file 05/09 PHQ-2 Answer Date Recorded Patient Health Questionnaire-2 Score 0 09/12/2023 Sex and Gender Information Value Date Recorded Sex Assigned at Not on file Legal Sex Male 6:50 PM CDT Gender Identity Not on file Sexual Orientation Not on file Last Filed Vital Signs Vital Sign Reading Time Taken Comments Blood Pressure 124/90 02/03/2024 8:30 PM CUL[employer]HER [employer] W[employer]ER Pulse 66 02/03/2024 8:30 PM [employer]HER [employer] W[employer]ER Temperature 36.8 ??C (98.2 ??F) 02/03/2024 5:35 PM CS T Respiratory Rate 17 02/03/2024 8:30 PM CULLET [employer]HER [employer] WASHER Oxygen Saturation 97% 02/03/2024 8:30 PM C[employer]HER [employer] W[employer]ER Inhaled Oxygen Concentration - - Weight 58.1 kg (128 lb) 02/03/2024 5:35 PM CULLET [employer]HER [employer] W[employer]ER Height 182.9 cm (6') 02/03/2024 5:35 PM [employer] W[employer]ER Body Mass Index 17.36 02/03/2024 5:35 PM C[employer]HER [employer] W[employer]ER Plan of Treatment Health Maintenance Due Date Last Done Comments Colorectal Cancer Screening Colonoscopy (10 Years) 1978 Annual Physical 1981 Hepatitis C 1996 DTaP, Tdap and Td Vaccines ( 1 - Tdap) 1997 Hepatitis B Vaccines (1 of 3 - 19+ 3-dose series) 1997 COVID-19 Vaccine (2023-2 5 season) 2023 05/16/2021, 04/03/2021 Influenza Adult (#1) 2023 12/17/2011 PHQ-2 (Physician [place]) 03/10/2024 09/12/2023 HPV Vaccines Aged Out No longer eligi ble based on patient's age to complete this topic Meningococcal B Vaccine Aged Out No l onger eligible based on patient's age to complete this topic Meningococcal Vaccine Aged Out No kristina christa eligible based on patient's age to complete this topic Pneumococcal Vaccine: Pediatrics (0 to 5 Years) and At-Risk Patients (6 to 64 Years) Aged Out No longer eligible b ased on patient's age to complete this topic RSV Immunizations Under 20 Months Aged Out No longer eligible b ased on patient's age to complete this topic Procedures Procedure Name Priority Date/Time Associated Diagnosis Comments CT GENERIC 03/29/2024 CT GENERIC 02/23/2024 CT GENERIC 02/23/2024 CT GENERIC 02/23/2024 CT GENERIC 02/23/2024 TROPONIN, QUANT STAT 02/03/2024 7:53 PM CULLET [employer]HER [employer] W[employer]ER XR CHEST PORTABLE STAT 02/03/2024 6:1 1 PM [employer] [employer] [employer] W[employer]ER MAGNESIUM STAT 02/03/2024 5:48 PM CULLET [employer]HER [employer] W[employer]ER PRO-BRAIN NATRIURETIC PEPTIDE STAT 02/03/2024 5:48 PM [employer] [employer] W[employer]ER LIPASE STAT 02/03/2024 5:48 PM C[employer] [employer]HER AND WASHER CK (CPK) STAT 02/03/2024 5:48 PM [facility] [employer] W[employer]ER TROPONIN, QUANT STAT 02/03/2024 5:48 PM [employer] [employer] W[employer]ER COMPREHENSIVE METABOLIC PANEL STAT 02/03/2024 5:48 PM C[employer] [employer] W[employer]ER D-DIMER, QUANTITATIVE STAT 02/03/2024 5:48 PM [employer] WASHER PARTIAL THROMBOPLASTIN TIME,PTT STAT 02/03/2024 5:48 PM [employer] [employer] W[employer]ER PROTHROMBIN TIME, VENOUS STAT 02/03/2024 5:48 PM CULLET [employer]HER AND WASHER CBC W/DIFF AUTOMATED STAT 02/03/2024 5:48 PM CULLET [employer]HER AND WASHER ECG 12-LEAD Routine 02/03/2024 5:36 PM CULLET CR[employer]HER AND WASHER from Last 3 Months Results * CT GENERIC (03/29/2024) Only the most recent of5 resultswithin the time period is included. Anatomical Region Laterality Modality Other 03/29/2024 us Doc [facility] Scanned SCANNING Final Resu lt * TROPONIN, QUANT (02/03/2024 7:53 PM CULLET [employer] W[employer]ER) Only the most recent of2 resultswithin the time period is included. TROPONIN I HIGH SENSITIVITY 4 0 - 75 ng/L 02/03/2024 8:22 PM CULLET CRUSHER AND [facility] Comment: HIGH DOSES OF BIOTIN, TROPONIN-SPECIFIC AUTOANTIBODIES, AND ANTIBODY THERAPY CONTAINING HAMA MAY INTERFERE WITH THIS TEST RESULT. CORRELATION TO CLINICAL HISTORY AND PRESENTATION RECOMMENDED. 02/03/2024 7:53 PM CULLET CRUSHER AND WASHER Alize Michel MD LABORATORY Final Result [facility] [address] [place] [address], * XR CHEST PORTABLE (02/03/2024 6:11 PM CULLET CR[employer]HER AND WASHER) Anatomical Region Laterality Modality Chest Radiographic Oriana ging 02/03/2024 6:17 PM C[employer]HER AND W[employer]ER Impressions 02/03/2024 6:21 PM C[employer] W[employer]ER Impression: No acute findings. Referred By: ?? Interpreted By: Allan Patel MD, 02/03/2024 6:17 PM Narrative 02/03/2024 6:21 PM CULLET CR[employer]HER AND WASHER [facility] [address] [place] [address] Examination: Chest 1 view portable History: Chest pain and shortness of breath DATE/TIME: 02/03/2024 6:04 PM Comparison: 07/13/2018 Technique: AP upright portable view of the chest was obtained. Findings: Spinal stimulator. ??Heart size, mediastinal contours and pulmonary vasculature are within normal limits. ??No pulmonary consolidation, pleural effusion or pneumothorax. ??No acute osseous abnormality. Procedure Note Allan Patel MD - 02/03/2024 [facility] [address] [place] [address] Examination: Chest 1 view portable History: Chest pain and shortness of breath DATE/TIME: 02/03/2024 6:04 PM Comparison: 07/13/2018 Technique: AP upright portable view of the chest was obtained. Findings: Spinal stimulator. Heart size, mediastinal contours andpulmonary vasculature are within normal limits. No pulmonaryconsolidation, pleural effusion or pneumothorax. No acute osseousabnormality. Impression: No acute findings. Referred By: Interpreted By: Allan Patel MD, 02/03/2024 6:17 PM Alize Michel MD GENERAL IMAGING Final Result * PRO-BRAIN NATRIURETIC PEPTIDE (02/03/2024 5:48 PM CULLET [employer]HER [employer] WASHER) PRO-B TYPE NATRIURETIC PEPTIDE 43 <125 PG/ML 02/03/2024 6:27 PM CULLET CRUSHER AND WASHER [facility] Comment: CUT POINTS ESTABLISHED BY [employer]NATIONAL [employer]LL[employer] ON NT PROBNP (ICON) STUDY (2006). AGE INDEPENDENT: <300 PG/ML HAS A 99% NEGATIVE PREDICTIVE VALUE FOR EXCLUDING ACUTE CHF <50 YEARS: >450 PG/ML IS CONSISTENT WITH ACUTE CHF 50-75 YEARS: >900 PG/ML IS CONSISTENT WITH ACUTE CHF >75 YEARS: >1800 PG/ML IS CONSISTENT WITH ACUTE CHF IN PATIENTS WITH RENAL INSUFFICIENCY (GFR <60), >1200 PG/ML YIELDS A DIAGNOSTIC SENSITIVITY AND SPECIFICITY OF 89% AND 72% FOR ACUTE CHF. 02/03/2024 5:48 PM CULLET CRUSHER AND WASHER us Alize Michel MD LABORATORY Final Result Performing Organization Address [facility] Co de Phone Number [facility] [address] [place] [address], [place] [phone] * (ABNORMAL) PARTIAL THROMBOPLASTIN TIME,PTT (02/03/2024 5:48 PM CULLET [employer]HER [employer] WASHER) PTT 53.6(H) 27.0 - 36.8 SEC 02/03/2024 6:25 PM CULLET CRUSHER AND [facility] 02/03/2024 5:48 PM CULLET CRUSHER AND WASHER us Alize Michel MD LABORATORY Final Result Performing Organization Address [facility] de Phone Number [facility] [address] [place] [address], [place] [phone] * PROTIME/INR, VENOUS (02/03/2024 5:48 PM CULLET CRUSHER AND WASHER) PROTIME 11.6 9.1 - 12.4 SEC 02/03/2024 6:25 PM CULLET CRUSHER AND [facility]ER [facility] INR 1.0 02/03/2024 6:25 PM CULLET CRUSHER AND [facility]ER [facility] Comment: Recommend INR ranges for Oral Anticoagulant Therapy: Mechanical Cardiac Values 2.5-3.5 All others indication 2.0-3.0 02/03/2024 5:48 PM CULLET [employer]HER AND WASHER us Alize Michel MD LABORATORY Final Result Performing Organization Address [facility] Co de Phone Number [facility] [address] [place] [address], [place] [phone] * (ABNORMAL) COMPREHENSIVE METABOLIC PANEL (02/03/2024 5:48 PM CULLET CRUSHER AND WASHER) [facility] GLUCOSE 112(H) 70 - 99 MG/DL 02/03/2024 6:27 PM [facility] BUN 17 7 - 18 MG/DL 02/03/2024 6:27 PM [facility] CREATININE S/P/B 0.95 0.7 - 1.3 MG/DL 02/03/2024 6:27 PM [facility] SODIUM S/P/B 138 136 - 145 MMOL/L 02/03/2024 6:27 PM [facility] POTASSIUM S/P/B 3.8 3.5 - 5.1 MMOL/L 02/03/2024 6:27 PM [facility] CHLORIDE S/P/B 102 100 - 108 MMOL/L 02/03/2024 6:27 PM [facility] CO2 28.4 21 - 32 MMOL/L 02/03/2024 6:27 PM [facility] CALCIUM S/P/B 8.9 8.5 - 10.1 MG/DL 02/03/2024 6:27 PM [facility] BILIRUBIN TOTAL S/P/B 0.9 0.2 - 1.2 MG/DL 02/03/2024 6:27 PM [facility] TOTAL PROTEIN S/P/B 6.9 6.4 - 8.2 G/DL 02/03/2024 6:27 PM [facility] ALBUMIN S/P/B 3.7 3.4 - 5.0 G/DL 02/03/2024 6:27 PM [facility] AST 12(L) 15 - 37 U/L 02/03/2024 6:27 PM [facility] ALT 15(L) 16 - 60 U/L 02/03/2024 6:27 PM [facility] ALKALINE PHOSPHATASE S/P/B 72 50 - 136 U/L 02/03/2024 6:27 PM [facility] ANION GAP 7.6 5 - 15 MMOL/L 02/03/2024 6:27 PM [facility] BUN CREATININE RATIO 17.9 6 - 26 02/03/2024 6:27 PM [facility] A/G RATIO 1.2 1.0 - 2.0 RATIO 02/03/2024 6:27 PM [facility] GFR ESTIMATE >90 >90 ML/MIN/1.7 3 M2 02/03/2024 6:27 PM [facility] Comment: NOTE: eGFR is not calculated for patients <18 years of age. This is an estimated GFR calculation using the new CKD EPI creatinine equation without race and so does not require a correction factor for race. This estimated GFR should not be used for calculating drug doses. 02/03/2024 5:48 PM CULLET CRUSHER AND WASHER Alize Michel MD LABORATORY Final Result [facility] [address] [place] [address], * D-DIMER, QUANTITATIVE (02/03/2024 5:48 PM CULLET [employer]HER [employer] W[employer]ER) D-DIMER <215 0 - 500 ng{FEU}/mL 02/03/2024 6:25 PM CULLET CRUSHER AND [facility] Comment: D-Dimer values less than or equal to 500 ng/mL FEU have a negative predictive value of >95% for exclusion of deep vein thrombosis and pulmonary embolism. In patients over 50 (who tend to have higher normal baseline D-Dimer values), recent studies suggest age-adjusted D-Dimer cutoff values (calculated as: age [years] x 10 ng/mL) result in equivalent outcomes and no additional false negative findings. 02/03/2024 5:48 PM CULLET CRUSHER [employer] WASHER Alize Michel MD LABORATORY Final Result [facility] [address] [place] [address], [place] [phone] * (ABNORMAL) CBC W/DIFF AUTOMATED (02/03/2024 5:48 PM CULLET CR[employer]HER AND WASHER) WBC 7.33 4.4 - 11.0 x10'3/uL 02/03/2024 6:10 PM CULLET CR[facility]HER AND [facility] RBC 4.88 4.50 - 5.90 x10'6/uL 02/03/2024 6:10 PM CULLET CRUSHER AND [facility] HGB 14.9 14.0 - 17.5 G/DL 02/03/2024 6:10 PM CULLET CR[facility]HER [employer] [facility] HCT 42.6 41.5 - 50.4 % 02/03/2024 6:10 PM CULLET CRUSHER AND [facility] MCV 87.3 80.0 - 96.0 FL 02/03/2024 6:10 PM CULLET CRUSHER AND [facility] MCH 30.5 26.5 - 31.4 PG 02/03/2024 6:10 PM CULLET CRUSHER AND [facility]ER [facility] MCHC 35.0(H) 31.9 - 34.8 G/DL 02/03/2024 6:10 PM CULLET CR[facility]HER [employer] [facility] RDW 12.6 12.3 - 14.3 % 02/03/2024 6:10 PM CULLET CRUSHER AND [facility] PLT 353 151 - 353 x10'3/uL 02/03/2024 6:10 PM CULLET CR[facility]HER AND [facility] MPV 10.7 9.7 - 11.9 FL 02/03/2024 6:10 PM CULLET CR[facility]HER AND [facility]ER [facility] RBC MORPHOLOGY NORMAL 02/03/2024 6:10 PM CULLET CR[facility]HER AND [facility] PLT MORPH. NORMAL 02/03/2024 6:10 PM CULLET CRUSHER AND [facility]ER [facility] WBC MORPHOLOGY NORMAL 02/03/2024 6:10 PM CULLET CR[facility]HER AND [facility]ER [facility] LYMPHOCYTES % 25.5 15.8 - 45.0 % 02/03/2024 6:10 PM CULLET CRUSHER AND [facility]ER [facility] NEUTROPHILS % 63.6 42.1 - 71.9 % 02/03/2024 6:10 PM CULLET CR[facility]HER AND [facility] MONOCYTES % 8.5 5.7 - 12.5 % 02/03/2024 6:10 PM CULLET CR[facility]HER AND [facility] EOSINOPHILS 0.7 0.0 - 5.6 % 02/03/2024 6:10 PM CULLET CR[facility]HER AND [facility] BASOPHILS 1.4(H) 0.0 - 1.3 % 02/03/2024 6:10 PM CULLET CRUSHER AND W[facility]ER [facility] ABS. NEUTROPHILS 4.67 1.40 - 6.00 x10'3/uL 02/03/2024 6:10 PM CULLET CRUSHER AND W[facility]ER [facility] IMMATURE GRANS % 0.3 0.0 - 0.5 % 02/03/2024 6:10 PM CULLET CRUSHER AND W[facility]ER [facility] ABS. LYMPHOCYTES 1.87 0.80 - 4.70 x10'3/uL 02/03/2024 6:10 PM [facility] 02/03/2024 5:48 PM CUL[facility] [employer] AND WASHER Alize Michel MD LABORATORY Final Result [facility] [address] [place] [address], * MAGNESIUM (02/03/2024 5:48 PM CULLET [employer]HER AND WASHER) MAGNESIUM 2.0 1.8 - 2.4 MG/DL 02/03/2024 6:27 PM CULLET CR[facility]HER AND [facility] 02/03/2024 5:48 PM CUL[employer]HER AND WASHER us Alize Michel MD LABORATORY Final Result [facility] [address] [place] [address], [place] [phone] * (ABNORMAL) LIPASE (02/03/2024 5:48 PM CULLET [employer]HER AND WASHER) Pathologist [facility] LIPASE 91(H) 16 - 77 UNITS/L 02/03/2024 6:27 PM CULLET CR[facility]HER AND [facility] 02/03/2024 5:48 PM CUL[employer]HER AND WASHER us Alize Michel MD LABORATORY Final Result Performing Organization Address City/[facility]/ZIP Co de Phone Number [facility] [address] [place] [address], [place] [phone] * CK (CPK) (02/03/2024 5:48 PM CULLET CR[employer]HER AND WASHER) Pathologist [facility] CPK 65 39 - 308 U/L 02/03/2024 6:27 PM CULLET CR[facility]HER AND [facility] 02/03/2024 5:48 PM CUL[employer]HER AND WASHER us Alize Michel MD LABORATORY Final Result [facility] [address] [place] [address], [place] [phone] * ECG 12 lead (02/03/2024 5:36 PM CUL[facility] [employer]HER AND WASHER) 02/03/2024 5:36 PM [facility] [employer] [facility]ER Narrative [facility] RAD - 02/05/2024 1:56 PM CULLET CR[employer]HER AND WASHER ?[facility] ? Test Date: ?2024-02-03 Pat Name: ? LIBRADO AYALA ? Department: ?? 85 ? Room: ? 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 : ?1980 ? Requested By: ALIZE CHGS Order Number: [id number] ? Reading MD: ?? Ghanshyam Perdue ? Measurements Intervals ?Ardara ? Rate: ? 75 ? P: ?91 VT: ? 146 ?QRS: ?84 QRSD: ? 81 ? T: ?90 QT: ? 374 ? QTc: ?419 ? Interpretive Statements SINUS RHYTHM WITH SINUS ARRHYTHMIA MARKED ST ELEVATION, CONSIDER INFERIOR INJURY ??[MARKED ST ELEVATION W/O NORMALLY INFLECTED T-WAVE IN II/aVF] +++ ACUTE [place] +++ Compared to ECG 06/09/2016 17:43:05 ST (T wave) deviation now present Myocardial infarct finding now present [facility] Procedure Note Ghanshyam Perdue MD - 02/05/2024 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1980 Requested By: ALIZE MICHEL Order Number: [id number] Ev MD: Ghanshyam Perdue Measurements Intervals Ardara Rate: 75 P: 91 VT: 146 QRS: 84 QRSD: 81 T: 90 QT: 374 QTc: 419 Interpretive Statements SINUS RHYTHM WITH SINUS ARRHYTHMIA MARKED ST ELEVATION, CONSIDER INFERIOR INJURY [MARKED ST ELEVATION W/O NORMALLY INFLECTED T-WAVE IN II/aVF] +++ ACUTE [place] +++ Compared to ECG 06/09/2016 17:43:05 ST (T wave) deviation now present Myocardial infarct finding now present [facility] [employer] [facility] us Alize Michel MD ECG ORDERABLES Final Result [facility]) RAD from Last 3 Months Insurance MEDICARE [facility] Care Teams Food Concession Manager Relationship Specialty [place] [address] [place] [address] PCP - General FAMILY PRACTICE 06/05/18
--- OUTSIDE RECORDS SUMMARY | 2024-04-08 12:14 | XMS_ITS | Patient Health Record ---
Author Organization [facility] Address [address] [facility] [address] [place] [address] Care Team Providers Care Broadcast Director Operations Name Role Phone Ghanshyam Perdue MD Primary Care Provider Xiang Duong Unavailable [phone] Migration, Provider Unavailable Unavailable Allergies No Known Allergies Results Component Value Reference Range Notes UDT Reviewed date:02/13/2024 01:53:23 PM Interpretation: Performing Lab: Notes/Report: THC POS 0 - 50 ng/ml Cocaine N 0 - 300 ng/ml Amphetamine N 0 - 1000 ng/ml Buprenorphine (BUP) N 0 - 10 ng/ml Secobarbital (Bar) N 0 - 300 ng/ml Oxazepam (BZO) POS 0 - 300 ng/ml 9-zskhlsazpm-1,7-vkfmvtxc-7,3-diphenylpyrrolidine (MARIBEL P) N 0 - 300 ng/ml Methamphetamine (MET) N 0 - 1000 ng/ml Methylenedioxymethamphetamine (MDMA) N 0 - 500 ng/ml Morphine (MOP 300/[id number]) N 0 - 300 ng/ml Methadone (MTD) N 0 - 300 ng/ml Phencyclidine (PCP) N 0 - 25 ng/ml Propoxyphene (PPX) N 0 - 300 ng/ml Nortriptyline (TCA) N 0 - 1000 ng/ml Oxycodone N 0 - 300 ng/ml Reason For Referral No Information Medications Medication SIG (Take, Route, Frequency, Duration) Notes Start Date End Date Status Divalproex Sodium 250 MG 1 tablet Orally Twice a day for 30 days Active hydrOXYzine HCl 25 MG Oral 03/17/2023 Active LORazepam 0.5 MG 1 tablet Orally Once a day for 7 days As needed 04/06/2024 Active OLANZapine 15 MG 1 tablet at bedtime Orally Once a day for 30 days Active cloNIDine HCl 0.1 MG TAKE 1 TABLET [facility] TWICE DAILY for 90 Active Gabapentin 100 MG Oral 03/17/2023 A ctive oxyCODONE-Acetaminophen 10-325 MG Oral 03/17/2023 Active Cyclobenzaprine HCl 10 MG Oral for 10 Days Active LORazepam 0.5 MG 1 tablet Orally Once a day for 7 days 02/16/2024 Active Immunizations Vaccine Route Administration Date Status Comme nts Pfizer Biontech Covid-19 Vac cine 2nd dose Unknown 04/03/2021 Administered Pfizer Biontech Covid-19 Vac cine 2nd dose Unknown 05/16/2021 Administered Social History Tobacco Use: Social History Observation Description Date Details (start date - stop date) Current Smoker NA - NA Sex Assigned At : Social History Observation Description Sex Assigned At Male Tobacco Control (Standard) Question Answer Notes Tobacco use: Current smoker How often do you smoke cigarettes? 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) 03/17/19 24 Active confirmed Problem Generalized anxiety disorder (58286939) Generalized anxiety disorder (F41.1) 03/17/19 24 Active confirmed Problem Attention deficit hyperactivity disorder (974486610) ADHD (attention deficit hyperactivity disorder), combined type (F90.2) Active confirmed Vital Signs Heart Rate 86 /min 04/06/2024 Height-cm 185.42 cm 04/06/2024 Blood pressure diastolic 88 mm Hg 04/06/2024 Weight-kg 60.78 kg 04/06/2024 Height 73.00 in 04/06/2024 Blood pressure systolic 129 mm Hg 04/06/2024 Weight 134 lbs 04/06/2024 BMI 17.68 kg/m2 04/06/2024 Encounters Encounter Location Date Provider Diagnosis [facility] [address] [address] 04/06/2024 Xiang Can Bipolar disorder, current episode mixed, severe, without psychotic features F31.63 ; Generalized anxiety disorder F41.1 ; 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 and ADHD (attention deficit hyperactivity disorder), combined type F90.2 [facility], [facility] [address] [place] [address] 08/18/2023 Xiang Can Bipolar disorder, current episode mixed, severe, without psychotic features F31.63 ; Generalized anxiety disorder F41.1 ; 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 and ADHD (attention deficit hyperactivity disorder), combined type F90.2 [facility], [facility] [address] [place] [address] 11/17/2023 Xiang Can [facility], [facility] [address] [place] [address] 02/04/2024 Xiang Can Bipolar disorder, current episode mixed, severe, without psychotic features F31.63 ; Generalized anxiety disorder F41.1 ; 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 and ADHD (attention deficit hyperactivity disorder), combined type F90.2 [facility], [facility] [address] [place] [address] 03/09/2024 Xiang Can Bipolar disorder, current episode mixed, severe, without psychotic features F31.63 ; Generalized anxiety disorder F41.1 ; 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 and ADHD (attention deficit hyperactivity disorder), combined type F90.2 [facility], [facility] [address] [place] [address] 05/01/2023 Provider Migration [facility], [facility] [address] [place] [address] 05/07/2023 Provider Migration [facility], [facility] [address] [place] [address] 06/04/2023 Provider [facility], [facility] [address] [place] [address] 06/11/2023 [facility], [facility] [address] [place] [address] 07/16/2023 Provider [facility], [facility] [address] [place] [address] 07/26/2023 Provider Migration [facility] [address] [facility] [address] [place] [address] 07/27/2023 Provider Migration [facility] [address] [facility] [address] [place] [address] 08/26/2023 Xiang Can ADHD (attention deficit hyperactivity disorder), combined type F90.2 [facility] [address] [facility] [address] [address] 08/26/2023 Xiang Ruanoa [facility] [address] [address] 08/27/2023 Xiang Ruanoa ADHD (attention deficit hyperactivity disorder), combined type F90.2 [facility] [address] [address] 03/09/2024 Xiang Can [place] [id number] [facility] [email or web address] [address] [address] 04/06/2024 Xiang Can 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 Assessments Encounter Date Diagnosis (ICD Code) Assessment Notes Treatment Notes Treatment Clinical Notes Section Notes 08/26/2023 ADHD (attention deficit hyperactivity disorder), combined type (ICD-10 - F90.2) Electronic Prior Authorization was requested for Atomoxetine HCl 80 MG Capsule. Provider can order medication once approval received. 08/27/2023 ADHD (attention deficit hyperactivity disorder), combined type (ICD-10 - F90.2) 02/04/2024 Bipolar disorder, current episode mixed, severe, without psychotic features (ICD-10 - F31.63) declines medication management for bipolar d/o 1. Bipolar Disorder: - Patient reports being on Seroquel 100 mg at bedtime since December 17 but has been experiencing severe stress, anxiety, and panic attacks recently. Plan: - Continue Seroquel 100 mg at bedtime. - Add Depakote 250 mg twice a day for mood stabilization. 2. Anxiety and Panic Attacks: - Patient reports stress-induced panic attacks and high blood pressure. Plan: - Add clonidine 0.1 mg twice a day for blood pressure and anxiety management. - Provide a short-term supply of lorazepam (7 tablets) for acute anxiety episodes, as it helped during the patient's recent hospital visit. 3. Substance Use: - Patient reports daily cannabis use and occasional alcohol consumption. Plan: - Perform a drug screen to assess for any additional substance use. - Encourage the patient to consider reducing or abstaining from substance use, as it may exacerbate mental health symptoms. 4. Psychosocial Stressors: - Patient is experiencing significant stress due to a recent divorce, ongoing conflict with his ex-, and co-parenting challenges. Plan: - Recommend counseling or therapy to address psychosocial stressors and improve coping strategies. - Encourage open communication with ex- regarding co-parenting and scheduling. 5. Emotional Support Animal (ISIAH) Letter Request: - Patient requests an ISIAH letter for his dog, Uma, who helps with anxiety management. Plan: - Provide the patient with an ISIAH letter for Uma, documenting the dog's role in the patient's mental health support. 6. Follow-up: - Schedule a follow-up appointment in 4 weeks to assess the patient's response to the medication adjustments and discuss any ongoing concerns. - Encourage the patient to reach out sooner if symptoms worsen or new concerns arise. 08/18/2023 Generalized anxiety disorder (ICD-10 - F41.1) persistent he stopped medications he is concerned about adhd symptoms he does have anxiety, irritability, impulsive start atomoxetine 25mg daily x 7 days then 50mg daily x 7 days then 80mg daily 03/09/2024 Bipolar disorder, current episode mixed, severe, without psychotic features (ICD-10 - F31.63) declines medication management for bipolar d/o 1. Bipolar disorder: - Continue Depakote 250 mg twice a day for mood stabilization and management of renita. - Discontinue quetiapine 100 mg at bedtime due to patient's intolerance to higher doses. Plan: - Initiate olanzapine 5 mg at bedtime to replace quetiapine and assist with sleep. 2. Anxiety: - Continue clonidine 0.1 mg twice a day for anxiety management. Plan: - Refill lorazepam as needed for acute anxiety episodes. 3. Depression: Plan: - Monitor patient's depressive symptoms during follow-up visits. - Consider adjusting medications or adding an antidepressant if depressive symptoms persist or worsen. 4. Insomnia: - Discontinue quetiapine 100 mg at bedtime. Plan: - Initiate olanzapine 5 mg at bedtime to help with sleep. 5. Alcohol use: Plan: - Encourage patient to reduce alcohol consumption and consider alternative relaxation methods. - Monitor for potential interactions with medications and impact on mental health. 6. Blood pressure: Plan: - Continue monitoring blood pressure during follow-up visits to ensure it remains within normal limits. Follow-up: - Schedule a follow-up appointment in one month to assess the patient's response to the medication changes and monitor their mental health status. 04/06/2024 Agoraphobia with panic disorder (ICD-10 - F40.01) 04/06/2024 Bipolar disorder, current episode mixed, severe, without psychotic features (ICD-10 - F31.63) 08/18/2023 Bipolar disorder, current episode mixed, severe, without psychotic features (ICD-10 - F31.63) declines medication management for bipolar d/o he stopped medications he is concerned about adhd symptoms he does have anxiety, irritability, impulsive start atomoxetine 25mg daily x 7 days then 50mg daily x 7 days then 80mg daily 08/18/2023 Agoraphobia with panic disorder (ICD-10 - F40.01) he stopped medications he is concerned about adhd symptoms he does have anxiety, irritability, impulsive start atomoxetine 25mg daily x 7 days then 50mg daily x 7 days then 80mg daily 04/06/2024 Generalized anxiety disorder (ICD-10 - F41.1) persistent 03/09/2024 Generalized anxiety disorder (ICD-10 - F41.1) persistent 1. Bipolar disorder: - Continue Depakote 250 mg twice a day for mood stabilization and management of renita. - Discontinue quetiapine 100 mg at bedtime due to patient's intolerance to higher doses. Plan: - Initiate olanzapine 5 mg at bedtime to replace quetiapine and assist with sleep. 2. Anxiety: - Continue clonidine 0.1 mg twice a day for anxiety management. Plan: - Refill lorazepam as needed for acute anxiety episodes. 3. Depression: Plan: - Monitor patient's depressive symptoms during follow-up visits. - Consider adjusting medications or adding an antidepressant if depressive symptoms persist or worsen. 4. Insomnia: - Discontinue quetiapine 100 mg at bedtime. Plan: - Initiate olanzapine 5 mg at bedtime to help with sleep. 5. Alcohol use: Plan: - Encourage patient to reduce alcohol consumption and consider alternative relaxation methods. - Monitor for potential interactions with medications and impact on mental health. 6. Blood pressure: Plan: - Continue monitoring blood pressure during follow-up visits to ensure it remains within normal limits. Follow-up: - Schedule a follow-up appointment in one month to assess the patient's response to the medication changes and monitor their mental health status. 02/04/2024 Generalized anxiety disorder (ICD-10 - F41.1) persistent 1. Bipolar Disorder: - Patient reports being on Seroquel 100 mg at bedtime since December 17 but has been experiencing severe stress, anxiety, and panic attacks recently. Plan: - Continue Seroquel 100 mg at bedtime. - Add Depakote 250 mg twice a day for mood stabilization. 2. Anxiety and Panic Attacks: - Patient reports stress-induced panic attacks and high blood pressure. Plan: - Add clonidine 0.1 mg twice a day for blood pressure and anxiety management. - Provide a short-term supply of lorazepam (7 tablets) for acute anxiety episodes, as it helped during the patient's recent hospital visit. 3. Substance Use: - Patient reports daily cannabis use and occasional alcohol consumption. Plan: - Perform a drug screen to assess for any additional substance use. - Encourage the patient to consider reducing or abstaining from substance use, as it may exacerbate mental health symptoms. 4. Psychosocial Stressors: - Patient is experiencing significant stress due to a recent divorce, ongoing conflict with his ex-, and co-parenting challenges. Plan: - Recommend counseling or therapy to address psychosocial stressors and improve coping strategies. - Encourage open communication with ex- regarding co-parenting and scheduling. 5. Emotional Support Animal (ISIAH) Letter Request: - Patient requests an ISIAH letter for his dog, Uma, who helps with anxiety management. Plan: - Provide the patient with an ISIAH letter for Uma, documenting the dog's role in the patient's mental health support. 6. Follow-up: - Schedule a follow-up appointment in 4 weeks to assess the patient's response to the medication adjustments and discuss any ongoing concerns. - Encourage the patient to reach out sooner if symptoms worsen or new concerns arise. 08/18/2023 ADHD (attention deficit hyperactivity disorder), combined type (ICD-10 - F90.2) he stopped medications he is concerned about adhd symptoms he does have anxiety, irritability, impulsive start atomoxetine 25mg daily x 7 days then 50mg daily x 7 days then 80mg daily 02/04/2024 Agoraphobia with panic disorder (ICD-10 - F40.01) 1. Bipolar Disorder: - Patient reports being on Seroquel 100 mg at bedtime since December 17 but has been experiencing severe stress, anxiety, and panic attacks recently. Plan: - Continue Seroquel 100 mg at bedtime. - Add Depakote 250 mg twice a day for mood stabilization. 2. Anxiety and Panic Attacks: - Patient reports stress-induced panic attacks and high blood pressure. Plan: - Add clonidine 0.1 mg twice a day for blood pressure and anxiety management. - Provide a short-term supply of lorazepam (7 tablets) for acute anxiety episodes, as it helped during the patient's recent hospital visit. 3. Substance Use: - Patient reports daily cannabis use and occasional alcohol consumption. Plan: - Perform a drug screen to assess for any additional substance use. - Encourage the patient to consider reducing or abstaining from substance use, as it may exacerbate mental health symptoms. 4. Psychosocial Stressors: - Patient is experiencing significant stress due to a recent divorce, ongoing conflict with his ex-, and co-parenting challenges. Plan: - Recommend counseling or therapy to address psychosocial stressors and improve coping strategies. - Encourage open communication with ex- regarding co-parenting and scheduling. 5. Emotional Support Animal (ISIAH) Letter Request: - Patient requests an ISIAH letter for his dog, Uma, who helps with anxiety management. Plan: - Provide the patient with an ISIAH letter for Uma, documenting the dog's role in the patient's mental health support. 6. Follow-up: - Schedule a follow-up appointment in 4 weeks to assess the patient's response to the medication adjustments and discuss any ongoing concerns. - Encourage the patient to reach out sooner if symptoms worsen or new concerns arise. 03/09/2024 Agoraphobia with panic disorder (ICD-10 - F40.01) 1. Bipolar disorder: - Continue Depakote 250 mg twice a day for mood stabilization and management of renita. - Discontinue quetiapine 100 mg at bedtime due to patient's intolerance to higher doses. Plan: - Initiate olanzapine 5 mg at bedtime to replace quetiapine and assist with sleep. 2. Anxiety: - Continue clonidine 0.1 mg twice a day for anxiety management. Plan: - Refill lorazepam as needed for acute anxiety episodes. 3. Depression: Plan: - Monitor patient's depressive symptoms during follow-up visits. - Consider adjusting medications or adding an antidepressant if depressive symptoms persist or worsen. 4. Insomnia: - Discontinue quetiapine 100 mg at bedtime. Plan: - Initiate olanzapine 5 mg at bedtime to help with sleep. 5. Alcohol use: Plan: - Encourage patient to reduce alcohol consumption and consider alternative relaxation methods. - Monitor for potential interactions with medications and impact on mental health. 6. Blood pressure: Plan: - Continue monitoring blood pressure during follow-up visits to ensure it remains within normal limits. Follow-up: - Schedule a follow-up appointment in one month to assess the patient's response to the medication changes and monitor their mental health status. 04/06/2024 Agoraphobia with panic disorder (ICD-10 - F40.01) 04/06/2024 ADHD (attention deficit hyperactivity disorder), combined type (ICD-10 - F90.2) 03/09/2024 ADHD (attention deficit hyperactivity disorder), combined type (ICD-10 - F90.2) 1. Bipolar disorder: - Continue Depakote 250 mg twice a day for mood stabilization and management of renita. - Discontinue quetiapine 100 mg at bedtime due to patient's intolerance to higher doses. Plan: - Initiate olanzapine 5 mg at bedtime to replace quetiapine and assist with sleep. 2. Anxiety: - Continue clonidine 0.1 mg twice a day for anxiety management. Plan: - Refill lorazepam as needed for acute anxiety episodes. 3. Depression: Plan: - Monitor patient's depressive symptoms during follow-up visits. - Consider adjusting medications or adding an antidepressant if depressive symptoms persist or worsen. 4. Insomnia: - Discontinue quetiapine 100 mg at bedtime. Plan: - Initiate olanzapine 5 mg at bedtime to help with sleep. 5. Alcohol use: Plan: - Encourage patient to reduce alcohol consumption and consider alternative relaxation methods. - Monitor for potential interactions with medications and impact on mental health. 6. Blood pressure: Plan: - Continue monitoring blood pressure during follow-up visits to ensure it remains within normal limits. Follow-up: - Schedule a follow-up appointment in one month to assess the patient's response to the medication changes and monitor their mental health status. 02/04/2024 ADHD (attention deficit hyperactivity disorder), combined type (ICD-10 - F90.2) 1. Bipolar Disorder: - Patient reports being on Seroquel 100 mg at bedtime since December 17 but has been experiencing severe stress, anxiety, and panic attacks recently. Plan: - Continue Seroquel 100 mg at bedtime. - Add Depakote 250 mg twice a day for mood stabilization. 2. Anxiety and Panic Attacks: - Patient reports stress-induced panic attacks and high blood pressure. Plan: - Add clonidine 0.1 mg twice a day for blood pressure and anxiety management. - Provide a short-term supply of lorazepam (7 tablets) for acute anxiety episodes, as it helped during the patient's recent hospital visit. 3. Substance Use: - Patient reports daily cannabis use and occasional alcohol consumption. Plan: - Perform a drug screen to assess for any additional substance use. - Encourage the patient to consider reducing or abstaining from substance use, as it may exacerbate mental health symptoms. 4. Psychosocial Stressors: - Patient is experiencing significant stress due to a recent divorce, ongoing conflict with his ex-, and co-parenting challenges. Plan: - Recommend counseling or therapy to address psychosocial stressors and improve coping strategies. - Encourage open communication with ex- regarding co-parenting and scheduling. 5. Emotional Support Animal (ISIAH) Letter Request: - Patient requests an ISIAH letter for his dog, Uma, who helps with anxiety management. Plan: - Provide the patient with an ISIAH letter for Uma, documenting the dog's role in the patient's mental health support. 6. Follow-up: - Schedule a follow-up appointment in 4 weeks to assess the patient's response to the medication adjustments and discuss any ongoing concerns. - Encourage the patient to reach out sooner if symptoms worsen or new concerns arise. Plan Of Treatment Pending Test Test Name Order Date UDT 04/06/2024 Next Appt Details Provider Name:Xiang tate, 05/04/2024 01:15:00 PM, [address], [address], [place], [address], Insurance Providers Payer Name Payer Address Payer Phone Subscriber Number Group Number Insured Name Patient Relationship to Insured Coverage Start Date Coverage End Date [facility] [address] [place] [address] [id number] JAIRON MORRIS Spouse - patient is the spouse of the insured Medicare-I l Medicare [address] [place] [address] [id number] CHRISTIANO AYALA Self - patient is the insured Medical (General) History Medical History History ICD Code Problems: Bipolar disorder Degeneration of lumbar intervertebral di sc Generalized anxiety disorder Inflammation of sacroiliac joint Memory impairment Migraine Nicotine dependence Panic disorder with agoraphobia , Surgical History Surgery Date(Month/Year) Any surgical history
--- OUTSIDE RECORDS SUMMARY | 2024-04-08 12:14 | XMS_ITS | Encounter Summary ---
Author Organization [facility] Address [address] [place] [address]. [place] [address] [place] [address] Care Team Providers Care Hotbed Lever Operator Name Role Phone Ghanshyam Perdue MD Primary Care Provider [phone] Encounter Details Date Type Department Care Team (Late st Contact Info) Description 08/15/2018 Abstract [facility] CONVERSION [address] [place], [place] [id number] , Generic MD Greyson Social History Tobacco Use Types Packs/Day Years Used Date Smoking Tobacco: Every Day Electronic Cigarettes Smokeless Tobacco: Never Alcohol Use Standard Drinks/Week Comments Yes 0 (1 standard drink = 0.6 oz pur e alcohol) AUDIT-C Answer Date Recorded Frequency of Alcohol Consumption Monthly or less 06/05/2018 Average Number of Drinks Not on file 019 Frequency of Binge Drinking Not on file 05/09 Sex and Gender Information Value Date Recorded Sex Assigned at Not on file Legal Sex Male 6:50 PM CDT Gender Identity Not on file Sexual Orientation Not on file documented as of this encounter Plan of Treatment Not on file documented as of this encounter Visit Diagnoses Not on filedocumented in this encounter Care Teams Hotbed Lever Operator Relationship Specialty Start [place] [address] [place] [address] PCP - General FAMILY PRACTICE 06/05/18 documented as of this encounter
--- OUTSIDE RECORDS SUMMARY | 2024-04-08 12:14 | XMS_ITS ---
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 Name Role Phone Ghanshyam Perdue MD Primary Care Provider Xiang Duong Unavailable [phone] REASON FOR VISIT Refill Medications Medication SIG (Take, Route, Fr equency, Duration) Notes Start Date End Date Status LORazepam 0.5 MG 1 tablet Orally Once a day for 7 days As needed 03/09/2024 Active Social History Sex Assigned At : Social History Observation Description Sex Assigned At Male Encounters Encounter Location Date Provider Diagnosis [facility] [employer] [place] [id number] [facility] [address] [address] 04/06/2024 Xiang Can 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 Assessments Encounter Date Diagnosis (ICD Code) Assessment Notes Treatment Notes Treatment Clinical Notes Section Notes 04/06/2024 Agoraphobia with panic disorder (ICD-10 - F40.01) Plan Of Treatment Medication Medication Name Sig Start Date Stop Date Notes LORazepam 0.5 MG 1 tablet Orally Once a day for 7 days Next Appt Details Provider Name:Xiang tate, 05/04/2024 01:15:00 PM, [address] [facility] [address], [facility] [address], [place], [address], Progress Notes * CHRISTIANO AYALA EDOB: [birth year] (43 yo M)Acc No.[id number]:04/06/2024 Patient:?CHRISTIANO AYALA :1980???Age:43 Y???Sex:Male Address:[facility] [address] , [place], [address] * Refills? Refill LORazepam Tablet, 0.5 MG, Orally, 7 Tablet, 1 tablet, Once a day, 7 days, Refills=0 * true * Date:? 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
--- OUTSIDE RECORDS SUMMARY | 2024-04-08 12:14 | XMS_ITS ---
Author Organization [facility] Address [address] [facility] [address] [place] [address] Care Team Providers Care Event Marketing Intern Name Role Phone Ghanshyam Perdue MD Primary Care Provider Xiang Duong Unavailable [phone] REASON FOR VISIT follow up medication eval Medications Medication SIG (Take, Route, Frequency, Duration) Notes Start Date End Date Status LORazepam 0.5 MG 1 tablet Orally Once a day for 7 days As needed 04/06/2024 Active OLANZapine 15 MG 1 tablet at bedtime Orally Once a day for 30 days Active Cyclobenzaprine HCl 10 MG Oral for 10 Days Active cloNIDine HCl 0.1 MG TAKE 1 TABLET BY [facility] TWICE DAILY for 90 Active LORazepam 0.5 MG 1 tablet Orally Once a day for 7 days 02/16/2024 Active cloNIDine HCl 0.1 MG 1 tablet Orally twi ce a day for 30 days Active Divalproex Sodium 250 MG 1 tablet Orally Twice a day for 30 days Active hydrOXYzine HCl 25 MG Oral 03/17/2023 Active Gabapentin 100 MG Oral 03/17/2023 A ctive oxyCODONE-Acetaminophen 10-325 MG Oral 03/17/2023 Active Social History Tobacco Use: Social History Observation Description Date Details (start date - stop date) Current Smoker NA - NA Sex Assigned At : Social History Observation Description Sex Assigned At Male Tobacco Control (Standard) Question Answer Notes Tobacco use: Current smoker How often do you smoke cigarettes? 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 and ADHD (attention deficit hyperactivity disorder), combined type F90.2 Assessments Encounter Date Diagnosis (ICD Code) Assessment Notes Treatment Notes Treatment Clinical Notes Section Notes 04/06/2024 Bipolar disorder, current episode mixed, severe, without psychotic features (ICD-10 - F31.63) 04/06/2024 Generalized anxiety disorder (ICD-10 - F41.1) persistent 04/06/2024 Agoraphobia with panic disorder (ICD-10 - F40.01) 04/06/2024 ADHD (attention deficit hyperactivity disorder), combined type (ICD-10 - F90.2) Plan Of Treatment Medication Medication Name Sig Start Date Stop Date Notes LORazepam 0.5 MG 1 tablet Orally Once a day for 7 days 04/06/2024 OLANZapine 15 MG 1 tablet at bedtime Orally Once a day for 30 days cloNIDine HCl 0.1 MG 1 tablet Orally twi ce a day for 30 days Divalproex Sodium 250 MG 1 tablet Orally Twice a day for 30 days Treatment Notes Assessment Notes Generalized anxiety disorder persistent Pending Test Test Name Order Date UDT 04/06/2024 Next Appt Details Follow Up: 4 Weeks, Reason: f/u bipolar d/o, anxiety Provider Name:Xiang tate, 05/04/2024 01:15:00 PM, [address], [place], [address], Progress Notes * CHRISTIANO AYALA EDOB: [birth year] (43 yo M)Acc No.[id number]:04/06/2024 Patient:?CHRISTIANO AYALA Provider:?HIGINIO ROY :1980???Age:43 Y???Sex:Male Eddie e:04/06/2024 Address:[address] , [place], [id number] Pcp:Ghanshyam Perdue MD Subjective: * Chief Complaints: * ???1. Follow up medication e margaux. * HPI: ???[place]-Suicide Severity Rating Scale:?Suicide Risk (CSRS-screener)?in the past one month Have you wished you were or wished you could go to sleep and not wake up??No,?in the past one month Have you actually had any thoughts of killing yourself??No,?Have you ever done anything, started to do anything, or prepared to do anything to end your life??No.?Depression Screening:?PETR-7 (2018 Edition)?Feeling nervous, anxious, or on edge?More than half the days,?Not being able to stop or control worrying?Several days,?Worrying too much about different things?Several days,?Trouble relaxing?More than half the days,?Being so restless that it is hard to sit still?More than half the days,?Becoming easily annoyed or irritable?Several days,?Feeling afraid as if something awful might happen?Not at all,?Total PETR-7 Score?9,?If you checked any problems, how difficult have they made it for you to do your work, take care of things at home, or get along with other people??Not difficult at all,?Interpretation of Total?(5 to 9) Mild.?Depression screening:?PHQ-9?Little interest or pleasure in doing things?Not at all,?Feeling down, depressed, or hopeless?Not at all,?Trouble falling or staying asleep, or sleeping too much?Not at all,?Feeling tired or having little energy?Not at all,?Poor appetite or overeating?Not at all,?Feeling bad about yourself or that you are a failure, or have let yourself or your family down?Not at all,?Trouble concentrating on things, such as reading the newspaper or watching television?Nearly every day,?Moving or speaking so slowly that other people could have noticed; or the opposite, being so fidgety or restless that you have been moving around a lot more than usual?Not at all,?Thoughts that you would be better off or of hurting yourself in some way?Not at all,?Total Score?3,?Interpretation?Minimal Depression.?Intervention?Depression Screening Findings?Negative,?Suicide Risk Assessment Performed? .?History of Presenting Problem:?Anxiety?persistent, he likes things organized.?Depression?gets mad when people don't listen to him.?Psychosis?no hallucinations.?Substance abuse?drinking every night, states he drinks to keep back pain away. Drinks 4 drinks. .?ADHD?talks fast, interrupts others.? * Medical History:? * Social History:?Tobacco Use:?Tobacco Control (Standard)?Tobacco use:?Current smoker,?How often do you smoke cigarettes??Every day.?Migrated Social History:?Migrated Social History: Alcohol Intake: Moderate 01/14/2022,Tobacco Years: Current some days smoker 06/25/2021,Smoking Status: 26 03/17/2023. ???Miscellaneous:?Advance Care Planning?Are you your own decision-maker?Yes,?Do you have Power of Director Of Donor Relations for Health or Medical??Yes,?Do you have a power of commercial real estate attorney for health??Yes,?Do you have power of commercial real estate attorney for Medical ??Yes.? * Medications:?Taking cloNIDin e HCl 0.1 MG Tablet 1 tablet Orally twice a day , Taking Divalproex Sodium 250 MG Tablet Delayed Release 1 tablet Orally Twice a day , Taking hydrOXYzine HCl 25 MG Tablet Oral , Taking Gabapentin 100 MG Capsule Oral , Taking oxyCODONE-Acetaminophen 10-325 MG Tablet Oral , Taking Cyclobenzaprine HCl 10 MG Tablet Oral , Taking cloNIDine HCl 0.1 MG Tablet TAKE 1 TABLET BY MOUTH TWICE DAILY , Taking LORazepam 0.5 MG Tablet 1 tablet Orally Once a day , Taking OLANZapine 5 MG Tablet 1 tablet at bedtime Orally Once a day , Taking LORazepam 0.5 MG Tablet 1 tablet Orally Once a day As needed, Medication List reviewed and reconciled with the patient Objective: * Vitals:?BP:129/88mm Hg, HR:8 6/min, Wt:134lbs, Wt-k.78 kg, Ht: 73.00 in, Ht- cm: 185.42 cm, BMI:17.68Index, Body Surface Area: 1.77. * Examination: ???Psychiatry: ?Appearance:?well-groomed, well-nourished, ....?Affect / mood:?appropriate, full range.?Attention:?good.?Attitude:?cooperative.?Suicidal ideation:?none.?Memory status:?no impairment noted.?Degree of awareness of surroundings:?within normal limits.?Delusions:?no.?Hallucinations:?no.?Insight:?good.?Intellectual functioning:?no impairment noted.?Judgement:?good.?Orientation:?awake, alert and oriented x 3.?Perceptual disorders:?no perceptual disorder noted.?Psychomotor activity:?within normal range.?Speech / language:?appropriate pitch/modulation, clear and coherent, normal rate, volume, and articulation (RVR), proper grammar used.?Thought content:?appropriate.?Thought process:?intact.? Assessment: * Assessment: 1.?Bipolar disorder, current episode mixed, severe, without psychotic features - F31.63 (Primary)???2.?Generalized anxiety disorder - F41.1???3.?Agoraphobia with panic disorder - F40.01???4.?ADHD (attention deficit hyperactivity disorder), combined type - F90.2??? Plan: * Treatment: 2.?Generalized anxiety disor lourdes? Refill cloNIDine HCl Tablet, 0.1 MG, 1 tablet, Orally, twice a day, 30 days, 60 Tablet, Refills 1.?? Notes: persistent?? 3.?Agoraphobia with panic di sorder? Refill LORazepam Tablet, 0.5 MG, 1 tablet, Orally, Once a day As needed, 7 days, 7 Tablet, Refills 0.?? * Labs:? * ?Lab: UDT * Procedure Codes:?97413 BEHAV ASSMT W/SCORE & DOCD/STAND INSTRUMENT, 21650 DRUG TST PRSMV READ INSTRMNT ASSTD DIR OPT OBS * Preventive Medicine:? ??Counseling:?BP Management:?PRE-HYPERTENSIVE FOLLOW-UP PLAN:?Follow-up 2 weeks ____,?LIFESTYLE RECOMMENDATION:?Lifestyle education Recommended Nonpharmacologic Interventions (Lifestyle Modifications) -Weight ReductionA heart-healthy diet , such as Dietary Approaches to Stop Hypertension (DASH) Eating PlanDietary Sodium RestrictionIncreased Physical ActivityModeration in alcohol consumption,?REFERRAL TO ALTERNATIVE / PRIMARY CARE PROVIDER:?Referral to general physician .? * Follow Up:?4 Weeks (Reason: f/u bipolar d/o, anxiety) * Billing Information: * Visit Code:? 29307 OFFICE OUTPATIENT VISIT 25 MINUTES DETAILED HISTORY AND EXAM/MODERATE MEDICAL DECISION MAKING. * Procedure Codes:? 29160 BEHAV ASSMT W/SCORE & DOCD/STAND INSTRUMENT. 53129 DRUG TST PRSMV READ INSTRMNT ASSTD DIR OPT OBS. * Electronic signature of HIGINIO Waters on 04/08/2024 at 12:13 PM BLOWER MECHANIC Sign off status: Pending * Provider:?HIGINIO ROY Date:? 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 Drinks 4 drinks. Psychosis no hallucinations ADHD talks fast, interrup ts others Depression screening PHQ-9 Little inte rest or pleasure in doing things: Not at all Feeling down, depressed, or hopeless: No t at all Trouble falling or staying asleep, or sl eeping too much: Not at all Feeling tired or having little energy: N ot at all Poor appetite or overeating: Not at all Feeling bad about yourself o r that you are a failure, or have let yourself or your family down: Not at all Trouble concentrating on thi ngs, such as reading the newspaper or watching television: Nearly every day Moving or speaking so slowly that other people could have noticed; or the opposite, being so fidgety or restless that you have been moving around a lot more than usual: Not at all Thoughts that you would be b jorge off or of hurting yourself in some way: Not at all Total Score: 3 Interpretation: Minimal Depression Intervention Depression Screening Findings: N egative Suicide Risk Assessment Performed: ____ Depression Screening PETR-7 (2018 Edition) Feelin g nervous, anxious, or on edge: More than half the days Not being able to stop or control worryi ng: Several days Worrying too much about different things : Several days Trouble relaxing: More than half the day s Being so restless that it is hard to sit still: More than half the days Becoming easily annoyed or irritable: Se veral days Feeling afraid as if something awful kurt ht happen: Not at all Total PETR-7 Score: 9 If you checked any problems, how difficult have they made it for you to do your work, take care of things at home, or get along with other people?: Not difficult at all Interpretation of Total: (5 to 9) Mild [place]-Suicide Severity Rating Scale Suicide Risk (CSRS-screener) in the past one month Have you wished you were or wished you could go to sleep and not wake up?: No in the past one month Have y ou actually had any thoughts of killing yourself?: No ?Have you ever done anything , started to do anything, or prepared to do anything to end your life?: No Examination Category Sub-Category Detail Notes Category Not es Psychiatry Appearance: well-groomed, well-nourished , ... Attitude: cooperative Psychomotor activity: within normal rang e Attention: good Degree of awareness of surroundings: wit hin normal limits Orientation: awake, alert and liane ented x 3 Affect / mood: appropriate, full ra nge Speech / language: appropriate pitch/mo dulation, clear and coherent, normal rate, volume, and articulation (RVR), proper grammar used Insight: good Judgement: good Thought process: intact Thought content: appropriate Perceptual disorders: no perceptual diso rder noted Suicidal ideation: none Intellectual functioning: no impairment noted Memory status: no impairment noted Delusions: no Hallucinations: no
== END 2024-04-08 11:05 | disposition home or self-care (01) ==
LOC: ANHIMG 11:17
PROVIDERS: PCP Family Medicine; Visit Provider Nurse Practitioner Family
DX: Z79.899 Other long term (current) drug therapy (principal); Z01.818 Encounter for other preprocedural examination
CPT/HCPCS: 93005